=== PATIENT | female | born 1970 | race Caucasian/White ===

== ENCOUNTER 2020-10-07 12:23 | Emergency (ER) | payer MEDICAID, SELFPAY ==
--- NOTE | ~2020-10-07 | CT_ITS ---
EXAMINATION: CT ABDOMEN AND PELVIS WITHOUT CONTRAST CLINICAL INFORMATION: Abdominal pain. COMPARISON: None TECHNIQUE: Multidetector volumetric imaging was performed from the superior aspect of the liver through the pubic symphysis. Sagittal and coronal reformatted images were obtained on the technologist's workstation. This CT examination was performed using dose optimization techniques as appropriate, variously including the following: *Automated exposure control *Adjustment of mA and/or kV according to patient size (this includes techniques or standardized protocols for targeted exams where dose is matched to indication/reason for exam; i.e. extremities or head) *Use of iterative reconstruction technique DLP: 420 mGy-cm FINDINGS: LUNG BASES: The visualized lung bases are unremarkable. LIVER, GALLBLADDER, AND BILIARY TREE: The liver is normal in size, shape, and attenuation. No focal hepatic lesion or biliary ductal dilatation is present. The gallbladder is unremarkable with no evidence of radiopaque gallstones, gallbladder wall thickening, or obvious pericholecystic inflammatory changes. PANCREAS: Unremarkable. SPLEEN: Unremarkable. ADRENAL GLANDS: Unremarkable. KIDNEYS AND URETERS: The kidneys are normal in size, shape, and attenuation. There are bilateral small radiopaque renal calculi. The largest 5 mm radiopaque calculi upper pole right kidney and largest 5 mm radiopaque radiopaque calculi mid pole left kidney. BLADDER: Unremarkable. GASTROINTESTINAL TRACT: There are annular sutures in the sigmoid colon with widely patent lumen. There is scattered stool and gas seen throughout the colon without significant distention. There is few scattered diverticula seen in colon but no diverticulitis. The small bowel loops are normal caliber. There is no free air or inflammatory process. ABDOMINAL WALL: No significant hernia is appreciated. LYMPH NODES: Normal. VASCULAR: Unremarkable. PELVIC VISCERA: The uterus is anteverted with bulky uterus and IUD well located within the fundal endometrial canal. There is no free fluid or free air seen. OSSEOUS STRUCTURES: No lytic or sclerotic process seen. CT/CT abdomen pelvis wo con IMPRESSION: Bilateral nephrolithiasis without any caliectasis or hydronephrosis. Scattered diverticulosis without diverticulitis. Widely patent anastomotic sigmoid colon with postsurgical changes. Mild constipation.
[2020-10-07 12:28] VITALS: BP 134/84; PULSE 106; TEMP 36.5; O2SAT 98; BMI 24.3
[2020-10-07 14:00] VITALS: BP 145/84; PULSE 99; RESP 20; O2SAT 99
--- NOTE | 2020-10-07 14:32 | ED.ABDPAIN ---
HPI - Abdominal Pain General Chief Complaint: Abdominal Pain Stated Complaint: MULTIPLE COMPLAINTS Time Seen by Provider: 10/07/20 14:20 Source: patient Mode of arrival: ambulatory Limitations: no limitations History of Present Illness HPI narrative: 50-year-old female history of sigmoid diverticulitis complicated with perforation and peritonitis, patient status post Hermilo's procedure with end-colostomy then went after that for reverse of the colostomy, presented today with 5 days of abdominal pain, patient used leftover Augmentin and prednisone felt temporary improvement of her symptoms, then symptoms start to worsen 2 days ago, described the pain as diffuse dull aching pain to the abdomen area, feeling bloated, feels nausea but no vomiting, last bowel movement was 3 days ago, declined passing flatus. Otherwise no fever, chills. Related Data Allergies Allergy/AdvReac Type Severity Reaction Status Date / Time apple Allergy Severe ANAPHYLAXIS Unverified 02/22/20 18:21 baker Allergy Severe ANAPHYLAXIS Unverified 02/22/20 18:21 latex [LATEX] Allergy Severe ANAPHYLACTIC Unverified 02/22/20 18:21 SHOCK peach [PEACH] Allergy Severe ANAPHYLAXIS Unverified 02/22/20 18:21 pear [PEAR] Allergy Severe ANAPHYLAXIS Unverified 02/22/20 18:21 latex Allergy Unknown Uncoded 09/06/13 00:00 Latex Gloves Allergy Unknown Uncoded 01/02/20 00:00 Review of Systems Review of Systems All other systems are reviewed and are negative Constitutional: Reports as per HPI and Reports no additional constitutional complaints Eyes: Reports as per HPI and Reports no additional eye complaints Reports system reviewed and no additional complaints, except as documented Cardiovascular: Reports as per HPI and Reports no additional cardiovascular complaints Respiratory: Reports as per HPI and Reports no additional respiratory complaints Gastrointestinal: Reports as per HPI and Reports no additional gastrointestinal complaints Genitourinary: Reports no additional female genitourinary complaints Musculoskeletal: Reports no additional musculoskeletal complaints Skin/Breast: Reports system reviewed and no additional complaints, except as docu Psychiatric: Reports no additional psychiatric complaints Endocrine: Reports no additional endocrine complaints Hematologic/Lymphatic: Reports no additional hematologic/lymphatic complaints Allergic/Immunologic: Reports no additional allergic/immunologic complaints Reports system reviewed and no additional complaints, except as documented and Reports Abnormal speech present Physical Exam Vital Signs: Vital Signs: Last Vital Signs Temp 97.7 F 10/07/20 12:28 Pulse 99 10/07/20 14:00 Resp 20 10/07/20 14:00 BP 145/84 H 10/07/20 14:00 Pulse Ox 99 10/07/20 14:00 Body Mass Index 24.3 Vital signs have been reviewed as appeared to be correct. Blood pressure normal. Heart rate normal. Respiration rate normal. Temperature normal. Oxygen saturation normal. Appearance: Alert. Oriented X3. No acute distress. Head: Normal external exam. Normocephalic. Atraumatic. No Najera signs noted. No raccoon eyes noted Eyes: PERRLA. EOMI. Conjunctiva and sclera normal. Eyelids normal. ENT: TM's Normal. Pharynx normal. Uvula midline. Moist mucous membranes. No trismus noted. No drooling noted. No muffled voice noted. Neck: Normal inspection. Neck supple. FROM. No adenopathy. Thyroid Normal. No meningeal signs. No neck mass noted. CVS: Normal heart rate and rhythm. Heart sound normal. No murmurs noted. Pulses normal throughout. Respiratory: No respiratory distress. Painless inspiration. Breath sounds normal. No wheezes/rales/rhonchi noted. Chest nontender. No accessory muscle usage noted or decreased air movement noted. Abdomen: Soft, LLQ mild abdominal tenderness, no rebound tenderness, no guarding.. Bowel sounds normal in all 4 quadrants. No distention noted. No organomegaly noted. No visible injury noted. Back: No CVA tenderness. Full range of motion noted. Skin: Skin warm and dry. Normal skin color. Normal skin turgor. No rashes/lesions/lacerations noted. Extremities: No lower extremity edema. Extremities exhibit normal range of motion. Extremities nontender. Neuro: Oriented X 3. No motor deficit. No sensory deficit. Reflexes normal. Course Course Course Narrative: Assessment and plan. 50-year-old female status post Hermilo's procedure after episode of diverticulitis with perforation came in with few days of abdominal pain that improved after patient took her on Augmentin and prednisone (that she use for her lupus) worsening of the abdominal pain over the last 2 days, exam showed no acute peritonitis, mild left lower quadrant tenderness, patient had a CT of the abdomen pelvis which is unremarkable for acute pathology except for mild constipation, normal white count unremarkable labs. Will discharge the patient continue with clear diet and drinking plenty of fluids and contact Dr. Gudino, patient was instructed to return if pain is worsening or not resolving in the next 2 days. MDM - Abdominal Pain Lab Data Attestation: I reviewed the patient's lab results. Result diagrams: 10/07/20 15:11 10/07/20 15:11 Labs: Lab Results 10/07/20 10/07/20 10/07/20 Range/Units 15:04 15:04 15:11 WBC 6.7 (4.8-10.8) X10*3/uL RBC 4.37 (4.20-5.50) X10*6/uL Hgb 13.6 (12.0-16.0) g/dl Hct 39.6 (37-47) % MCV 90.6 (80-98) fL MCH 31.1 (27.0-33.0) pg MCHC 34.3 (31.0-35.0) g/dl RDW 11.5 (11.0-16.0) % Plt Count 336 (160-400) X10*3/uL MPV 9.1 L (9.4-12.3) fL Immature Gran % (Auto) 0.3 (0.0-0.4) % Neut % (Auto) 57.8 (45-73) % Lymph % (Auto) 30.7 (20-40) % [place] % (Auto) 6.0 (2-11) % Eos % (Auto) 4.9 H (0-4) % Baso % (Auto) 0.3 (0-2) % Lymph # (Auto) 2.1 (1.2-4.9) X10*3/uL [place] # (Auto) 0.4 (0.1-1.2) X10*3/uL Eos # (Auto) 0.3 (0.0-0.4) X10*3/uL Baso # (Auto) 0.0 (0.0-0.2) X10*3/uL Abs Immat Gran (auto) 0.02 (0.00-0.03) X10*3/uL Absolute Neuts (auto) 3.9 (2.0-8.3) X10*3/uL Absolute Nucleated RBC 0.000 (0.0-0.012) X10*3/uL Nucleated RBC % (auto) 0.0 (0.0-0.2) /100WBC Sodium (135-145) mmol/L Potassium (3.3-5.1) mmol/L Chloride (96-108) mmol/L Carbon Dioxide (22-29) mmol/L Anion Gap (12-20) BUN (9-16) mg/dL Creatinine (0.5-1.4) mg/dL Estim Creat Clear Calc Estimated GFR Random Glucose (60-115) mg/dL Calcium (8.4-10.2) mg/dL Lipase (8-78) U/L Urine Color YELLOW Urine Appearance CLEAR Urine pH 6.5 (5.0-8.0) Ur Specific [place] 1.010 (1.005-1.025) Urine Protein NEG (NEG-TRACE) MG/DL Urine Glucose (UA) NEG (NEG) MG/DL Urine Ketones NEG (NEG) MG/DL Urine Blood NEG (NEG) Urine Nitrite NEG (NEG) Ur Leukocyte Esterase NEG (NEG) Urine Test NEGATIVE (NEGATIVE) 10/07/20 Range/Units 15:11 WBC (4.8-10.8) X10*3/uL RBC (4.20-5.50) X10*6/uL Hgb (12.0-16.0) g/dl Hct (37-47) % MCV (80-98) fL MCH (27.0-33.0) pg MCHC (31.0-35.0) g/dl RDW (11.0-16.0) % Plt Count (160-400) X10*3/uL MPV (9.4-12.3) fL Immature Gran % (Auto) (0.0-0.4) % Neut % (Auto) (45-73) % Lymph % (Auto) (20-40) % [place] % (Auto) (2-11) % Eos % (Auto) (0-4) % Baso % (Auto) (0-2) % Lymph # (Auto) (1.2-4.9) X10*3/uL [place] # (Auto) (0.1-1.2) X10*3/uL Eos # (Auto) (0.0-0.4) X10*3/uL Baso # (Auto) (0.0-0.2) X10*3/uL Abs Immat Gran (auto) (0.00-0.03) X10*3/uL Absolute Neuts (auto) (2.0-8.3) X10*3/uL Absolute Nucleated RBC (0.0-0.012) X10*3/uL Nucleated RBC % (auto) (0.0-0.2) /100WBC Sodium 141 (135-145) mmol/L Potassium 3.7 (3.3-5.1) mmol/L Chloride 103 (96-108) mmol/L Carbon Dioxide 31 H (22-29) mmol/L Anion Gap 11 L (12-20) BUN 14 (9-16) mg/dL Creatinine 0.84 (0.5-1.4) mg/dL Estim Creat Clear Calc 67.7 Estimated GFR > 60 Random Glucose 76 (60-115) mg/dL Calcium 9.5 (8.4-10.2) mg/dL Lipase 33 (8-78) U/L Urine Color Urine Appearance Urine pH (5.0-8.0) Ur Specific [place] (1.005-1.025) Urine Protein (NEG-TRACE) MG/DL Urine Glucose (UA) (NEG) MG/DL Urine Ketones (NEG) MG/DL Urine Blood (NEG) Urine Nitrite (NEG) Ur Leukocyte Esterase (NEG) Urine Test (NEGATIVE) Discharge Plan Discharge Clinical Impression: Abdominal pain, Constipation Patient Disposition: Home, Self-Care Instructions: Constipation (ED) Additional Instructions: Return to the emergency department if pain is worsening or not resolving in the next 2 days. Drink plenty fluids, continue with clear diet then advance as tolerated. Referrals: Mamadou Gudino MD [Physician] - [facility] Past Medical History Medical History ADHD Diverticulitis HTN (hypertension) Lupus Surgical History (Updated 10/07/20 @ 12:33 by Veronique Moise) History of colon resection Social History Social History Advance Directives: No Advance Directives Information Provided: No
[2020-10-07 15:20] LABS: MANUAL DIFF FLAG NO
[2020-10-07 15:24] LABS: Basophils Percent Auto 0.3 % (0-2); Eosinophils Absolute Auto 0.3 X10*3/uL (0.0-0.4); Eosinophils Percent Auto 4.9 % (0-4); Hematocrit 39.6 % (37-47); Hemoglobin 13.6 g/dl (12.0-16.0); Imm Gran Abs Auto 0.02 X10*3/uL (0.00-0.03); Imm Gran Pct Auto 0.3 % (0.0-0.4); Lymphocytes Absolute Auto 2.1 X10*3/uL (1.2-4.9); Lymphocytes Percent Auto 30.7 % (20-40); Mean Corpuscular HGB Conc 34.3 g/dl (31.0-35.0); Mean Corpuscular Hemoglobin 31.1 pg (27.0-33.0); Mean Corpuscular Volume 90.6 fL (80-98); Mean Platelet Volume 9.1 fL (9.4-12.3); Monocytes Absolute Auto 0.4 X10*3/uL (0.1-1.2); Neutrophils Absolute Auto 3.9 X10*3/uL (2.0-8.3); Neutrophils Percent Auto 57.8 % (45-73); Platelet Count 336 X10*3/uL (160-400); Red Blood Count 4.37 X10*6/uL (4.20-5.50); Red Cell Distribution Width 11.5 % (11.0-16.0); White Blood Count 6.7 X10*3/uL (4.8-10.8)
[2020-10-07 15:25] LABS: Glucose Urine UA NEG (NEG); Leukocyte Esterase Urine NEG (NEG); Nitrite Urine NEG (NEG); PH 6.5 (5.0-8.0); Urine Blood NEG (NEG); Urine Ketones NEG (NEG); Urine Protein NEG (NEG-TRACE)
[2020-10-07 15:28] LABS: Appearance Urine CLEAR; Color Urine YELLOW
[2020-10-07 15:29] LABS: UPreg QC Valid YES; Urine Pregnancy NEGATIVE (NEGATIVE)
[2020-10-07] MEDS: ondansetron HCL 4 MG/2 ML VIAL IVPUSH (15:29)
[2020-10-07] MEDS: 0.9 % Sodium Chloride 1,000 ML 999 ML IVCONT (15:30)
[2020-10-07] MEDS: Morphine Sulfate 2 MG/ML CARTRIDGE 1 MG IVPUSH (15:30)
[2020-10-07 15:51] LABS: Anion Gap 11 (12-20); Blood Urea Nitrogen 14 mg/dL (9-16); Calcium 9.5 mg/dL (8.4-10.2); Carbon Dioxide 31 mmol/L (22-29); Chloride 103 mmol/L (96-108); Creatinine Clr Calc Pharmacy 67.7; Estimated Glomerular Filt Rate > 60; Glucose Random 76 mg/dL (60-115); Lipase 33 U/L (8-78); Potassium 3.7 mmol/L (3.3-5.1); Sodium 141 mmol/L (135-145)
[2020-10-07 15:53] LABS: Alanine Aminotransferase 15 U/L (0-31); Albumin Level 4.5 g/dL (3.5-5.0); Alkaline Phosphatase 59 U/L (39-117); Aspartate Amino Transferase 13 U/L (5-31); Bilirubin Direct < 0.2 mg/dL (0.0-0.5); Bilirubin Total 0.4 mg/dL (0.0-1.0); Total Protein 7.3 g/dL (6.5-8.0)
== END 2020-10-07 16:33 | disposition home or self-care (01) ==
PROVIDERS: Emergency Provider Emergency Medicine; PCP Family Medicine
DX: R10.9 Unspecified abdominal pain (principal); K59.00 Constipation, unspecified; I10 Essential (primary) hypertension; Z79.899 Other long term (current) drug therapy
CPT/HCPCS: 36415; 74176; 80048; 80076; 81003; 81025; 83690; 85025; 96374; 96375; 99284; J2270; J2405

== ENCOUNTER → 2020-10-11 09:03 | Outpatient (BNVA) | payer MEDICAID, SELFPAY | PROVIDERS: PCP Family Medicine; Visit Provider Surgery | DX: K57.92 Diverticulitis of intestine, part unspecified, without perforation or abscess without bleeding (principal); M32.9 Systemic lupus erythematosus, unspecified; K59.00 Constipation, unspecified | CPT/HCPCS: 99212 ==

== ENCOUNTER 2020-11-15 08:10 | Day surgery (SDC) | payer MEDICAID, SELFPAY ==
--- NOTE | 2020-11-13 12:36 | HO.ANESPROP2 ---
Documented by User: Toya Houston 11/13/20 12:38 HPI - Anesthesia Eval Consult details Narrative: 50yo F for Colonoscopy h/o ostomy s/p reversal ? chronic prednisone (lupus) PMFSH Active Problems Active Problems: All Active Problems (Updated 10/11/20 @ 09:30 by Mamadou Gduino MD) Lupus (Acute) Diverticulitis (Acute) Past Medical History Medical History ADHD Diverticulitis HTN (hypertension) Lupus Surgical History Surgical History History of colon resection Social History Social History Alcohol intake: never Patient Tobacco Use Status: Never used Tobacco Second Hand Smoke Exposure: No Use of substances other than those prescribed or required for medical reasons: Yes Substance Use Type Other:: medical marijuana Are you DNR?: No Advance Directives: No Advance Directives Information Provided: Yes Advance Directives on File: No Nutrition Risks: No Nutritional Risk Patient : No : No Poor oral hygiene: No Meds Allergies Allergy/AdvReac Type Severity Reaction Status Date / Time apple Allergy Severe ANAPHYLAXIS Verified 11/15/20 08:19 baker Allergy Severe ANAPHYLAXIS Verified 11/15/20 08:19 latex [LATEX] Allergy Severe ANAPHYLACTIC Verified 11/15/20 08:19 SHOCK peach [PEACH] Allergy Severe ANAPHYLAXIS Verified 11/15/20 08:19 pear [PEAR] Allergy Severe ANAPHYLAXIS Verified 11/15/20 08:19 latex Allergy Unknown Rash Uncoded 11/15/20 08:19 Latex Gloves Allergy Unknown Rash Uncoded 11/15/20 08:19 Exam Exam Date and Time: November 13, 2020 1236 Pertinent Lab Results Pertinent Lab Results: Laboratory Tests 10/07/20 10/07/20 15:11 15:11 WBC 6.7 Hgb 13.6 Hct 39.6 Plt Count 336 Sodium 141 Potassium 3.7 Chloride 103 Carbon Dioxide 31 H BUN 14 Creatinine 0.84 Assessment and Plan Assessment Anesthesia Assessment: Chart Reviewed Documented by User: Kristen Estes 11/15/20 09:41 PMFSH Past Medical History Medical History ADHD Diverticulitis HTN (hypertension) Lupus Surgical History Surgical History History of colon resection Social History Social History Alcohol intake: never Patient Tobacco Use Status: Never used Tobacco Second Hand Smoke Exposure: No Use of substances other than those prescribed or required for medical reasons: Yes Substance Use Type Other:: medical marijuana Are you DNR?: No Advance Directives: No Advance Directives Information Provided: Yes Advance Directives on File: No Nutrition Risks: No Nutritional Risk Patient : No : No Poor oral hygiene: No Meds Allergies Allergy/AdvReac Type Severity Reaction Status Date / Time apple Allergy Severe ANAPHYLAXIS Verified 11/15/20 08:19 baker Allergy Severe ANAPHYLAXIS Verified 11/15/20 08:19 latex [LATEX] Allergy Severe ANAPHYLACTIC Verified 11/15/20 08:19 SHOCK peach [PEACH] Allergy Severe ANAPHYLAXIS Verified 11/15/20 08:19 pear [PEAR] Allergy Severe ANAPHYLAXIS Verified 11/15/20 08:19 latex Allergy Unknown Rash Uncoded 11/15/20 08:19 Latex Gloves Allergy Unknown Rash Uncoded 11/15/20 08:19 Exam Airway Mallampati Class: II TM Dist: >3cm Neck ROM: Full Loose/Missing/Broken Teeth: No Heart: RRR Lungs: CTA Assessment and Plan Assessment Anesthesia Assessment: Anesthesia Plan Discussed and Chart Reviewed Final Anesthetic Review NPO: Yes ASA Class: II Final Preanesthetic Review: Meds/Allgs Chart Reviewed, Consent Obtained/Reviewed and Anes Risks/Benef Reviewed Patient Risk: Low Procedure Risk: Low Anesthetic Plan Anesthetic Plan: MAC: Disposition: Standard PACU
[2020-11-15 08:20] VITALS: BMI 23.3
[2020-11-15 08:32] VITALS: BP 106/56; PULSE 99; RESP 18; TEMP 36.1; O2SAT 97
[2020-11-15] MEDS: Lactated Ringers 1,000 ML 100 ML IVCONT (08:38)
[2020-11-15 10:10] VITALS: BP 97/47; PULSE 95; RESP 18; TEMP 36.3; O2SAT 100
--- NOTE | 2020-11-15 10:15 | PM.OP ---
Brief Operative Note Date of Service: 11/15/20 Pre-op diagnosis: Screening Post-op diagnosis: other (Colon polyps) Procedure: Colonoscopy to the cecum and TI with biopsies Surgeon: Ghulam Velazquez Anesthesia: MAC Was an Edge Banding Machine Offbearer used for this Procedure?: No Estimated blood loss (mL): 4.0 Pathology: other (A. Polyp along inferior portion of ICV B. Cecal polyp) Condition: stable Disposition: PACU
[2020-11-15 10:25] VITALS: BP 109/49; PULSE 89; RESP 17; TEMP 36.3; O2SAT 97
--- NOTE | 2020-11-15 13:09 | OP_ITS ---
SURGEON: Ghulam Velazquez MD INDICATIONS: The patient presents for evaluation of colorectal cancer screening. Full consent has been obtained from her for this, including risks of bleeding and perforation. PREOPERATIVE DIAGNOSIS: Colorectal cancer screening. POSTOPERATIVE DIAGNOSIS: PROCEDURE PERFORMED: Colonoscopy to the cecum and terminal ileum with biopsy and removal of polyps. ESTIMATED BLOOD LOSS: COMPLICATIONS: ANESTHESIA: Monitored anesthesia care. ASSISTANTS: SPECIMENS: POSTOPERATIVE DIAGNOSES: Colorectal cancer screening, colon polyps, normal anastomosis, and internal hemorrhoids. DESCRIPTION OF PROCEDURE: The patient was placed in the left lateral decubitus position. The digital rectal exam revealed no abnormalities. The Olympus video pediatric colonoscope was entered into the rectum and advanced easily to the cecum. Once in the cecum, I did identify normal-appearing cecal pouch other than a flat whitish approximately 10 to 12 mm slightly raised polypoid area that was biopsied multiple times. I do not think it represented an adenoma. The terminal ileum was cannulated and appeared normal. Scope was withdrawn back in the colon. The remainder of the cecum appeared normal, including the appendiceal orifice. The scope was then slowly withdrawn assessing all mucosal surfaces carefully. Preparation was excellent, although there was some small areas of liquid and semi-solid stool that had to be irrigated and suctioned away. In the very proximal ascending colon, alongside the inferior portion of the ileocecal valve, was another similar type polyp as to the one of the cecum. Multiple biopsies were obtained from this as well. I did not visualize any other polyps, colitis, nor angiodysplasia. A normal-appearing anastomosis with a retained staple was seen in the mid rectum. I was able to retroflexed visualizing some small internal hemorrhoids, but no other pathology. The scope was straightened. I did not visualize any other polyps throughout the colon, colitis, nor angiodysplasia. The scope was withdrawn from the patient. She tolerated the procedure well and was returned to the recovery area in stable condition. IMPRESSION: 1. Colon polyps, status post biopsies. 2. Normal anastomosis. 3. Small internal hemorrhoids. PLAN: The results of the biopsies will be checked. If this is just hyperplastic and non-adenomatous tissue, then recommend a repeat colonoscopy in 10 years for further screening. She was advised to continue her regimen of MiraLAX and stool softeners on a regular basis to avoid constipation. She was advised not to use any aspirin and NSAIDs for 1 week. If things are stable, she will otherwise see me on a p.r.n. basis. MD OPAL Carbajal/BRIAN / [id number]
== END 2020-11-15 10:49 | disposition home or self-care (01) ==
PROVIDERS: PCP Family Medicine; Visit Provider Internal Medicine
PROC: 0DJD8ZZ Inspection of Lower Intestinal Tract, Via Natural or Artificial Opening Endoscopic (ICD-10-PCS; CPT 45378; principal; 2020-11-15 09:10)
DX: Z12.11 Encounter for screening for malignant neoplasm of colon (principal); Z83.71 Family history of colonic polyps; D12.0 Benign neoplasm of cecum; D12.2 Benign neoplasm of ascending colon; K64.8 Other hemorrhoids; K59.00 Constipation, unspecified; Z90.49 Acquired absence of other specified parts of digestive tract; Z98.0 Intestinal bypass and anastomosis status; I10 Essential (primary) hypertension; M32.9 Systemic lupus erythematosus, unspecified; F12.90 Cannabis use, unspecified, uncomplicated; Z79.899 Other long term (current) drug therapy; Z79.52 Long term (current) use of systemic steroids
CPT/HCPCS: 45380; 88305

== ENCOUNTER 2020-12-21 18:15 | Emergency (ER) | payer MEDICAID, SELFPAY ==
--- NOTE | ~2020-12-21 | CT_ITS ---
EXAMINATION: CT ABDOMEN AND PELVIS WITHOUT CONTRAST CLINICAL INFORMATION: Left lower quadrant pain. Question diverticulitis. COMPARISON: Multiple priors, most recent CT abdomen/pelvis dated 10/07/2020. TECHNIQUE: Multidetector volumetric imaging was performed from the superior aspect of the liver through the pubic symphysis. Sagittal and coronal reformatted images were obtained on the technologist's workstation. This CT examination was performed using dose optimization techniques as appropriate, variously including the following: *Automated exposure control *Adjustment of mA and/or kV according to patient size (this includes techniques or standardized protocols for targeted exams where dose is matched to indication/reason for exam; i.e. extremities or head) *Use of iterative reconstruction technique DLP: 400 mGy-cm FINDINGS: LUNG BASES: The visualized lung bases are unremarkable. LIVER, GALLBLADDER, AND BILIARY TREE: The liver is normal in size, shape, and attenuation. No focal hepatic lesion or biliary ductal dilatation is present. The gallbladder is unremarkable with no evidence of radiopaque gallstones, gallbladder wall thickening, or obvious pericholecystic inflammatory changes. PANCREAS: Unremarkable. SPLEEN: Unremarkable. ADRENAL GLANDS: Unremarkable. KIDNEYS AND URETERS: The kidneys are normal in size, shape, and attenuation. Multiple bilateral renal stones are redemonstrated, increased in size and number when compared to the prior examination. The largest right upper pole renal stone measures 0.4 cm and is located 6.8 cm from the posterior axillary line. The largest left-sided renal stone is within the lateral pole and measures 0.6 cm. This is located 6.2 cm from the posterior axillary line. No ureteral stone. No hydronephrosis or hydroureter. BLADDER: Unremarkable. GASTROINTESTINAL TRACT: Unremarkable rectosigmoid anastomosis. Diverticulosis without evidence of acute diverticulitis. No bowel wall thickening or associated inflammatory change. Mild stool throughout the right colon. No small or large bowel obstruction. Appendix not identified, however, no right lower quadrant inflammatory change. PERITONEAL CAVITY: No intra-abdominal free air or free fluid. No intra-abdominal mass or organized fluid collection/abscess formation. ABDOMINAL WALL: No significant hernia is appreciated. LYMPH NODES: Normal. VASCULAR: Unremarkable. PELVIC VISCERA: IUD within the uterus. OSSEOUS STRUCTURES: Unremarkable. CT/CT abdomen pelvis wo con IMPRESSION: 1. Multiple bilateral renal stones, increased in size and number when compared to the prior CT. The largest stone on the right measures 0.4 cm and the largest on the left measures 0.6 cm. No hydronephrosis or hydroureter. 2. Diverticulosis without evidence of acute diverticulitis. Unremarkable rectosigmoid anastomosis. No small or large bowel obstruction. 3. No intra-abdominal mass, lymphadenopathy, or ascites.
[2020-12-21 18:19] VITALS: BP 123/90; PULSE 136; RESP 15; TEMP 36.6; O2SAT 99; BMI 23.3
--- NOTE | 2020-12-21 18:52 | ED.ABDPAIN ---
HPI - Abdominal Pain General Chief Complaint: Abdominal Pain Stated Complaint: general medical Time Seen by Provider: 12/21/20 18:52 Source: patient Mode of arrival: ambulatory Limitations: no limitations History of Present Illness HPI narrative: Patient with history of perforated diverticulitis status post colectomy, lupus on Plaquenil stops here for 3- 4 days of left lower abdominal pain with nausea and chills no fever no diarrhea no bloody stool pain got worse for last few hours patient feels foggy in her mind will confuse feels same when she had perforated diverticulitis in 2019. Related Data Previous Rx's Medication Instructions Recorded amoxicillin-pot clavulanate 1 tab PO BID #20 tab 12/21/20 [Augmentin] dicyclomine 20 mg PO QID PRN #20 tab 12/21/20 Allergies Allergy/AdvReac Type Severity Reaction Status Date / Time apple Allergy Severe ANAPHYLAXIS Verified 12/21/20 18:18 baker Allergy Severe ANAPHYLAXIS Verified 12/21/20 18:18 latex [LATEX] Allergy Severe ANAPHYLACTIC Verified 12/21/20 18:18 SHOCK peach [PEACH] Allergy Severe ANAPHYLAXIS Verified 12/21/20 18:18 pear [PEAR] Allergy Severe ANAPHYLAXIS Verified 12/21/20 18:18 latex Allergy Unknown Rash Uncoded 11/15/20 08:19 Latex Gloves Allergy Unknown Rash Uncoded 11/15/20 08:19 Review of Systems Review of Systems Yes all other systems are reviewed and are negative Physical Exam Vital Signs: Vital Signs: Last Vital Signs Temp 98.0 F 12/21/20 22:00 Pulse 90 12/21/20 22:00 Resp 20 12/21/20 22:00 BP 130/70 12/21/20 22:00 Pulse Ox 97 12/21/20 22:00 Body Mass Index 23.3 Appearance: Alert. Oriented X3. In moderate distress. Eyes: PERRLA, No Nystagmus ENT: Pharynx normal. Oral Mucosa moist Neck: Normal inspection. Neck supple. CVS: Tachycardic no murmur or gallop. Pulses normal. Respiratory: No respiratory distress. Equal air entry bilateral, no wheezing/rales/rhonchi Abdomen: Soft and tender left lower quadrant with guarding no rebound tenderness Bowel sounds are present, no mass palpable, no CVA tenderness Skin: Skin warm and dry. Normal skin color. Normal skin turgor. Extremities: No lower extremity edema. No calf tenderness Neuro: Oriented X 3. No motor deficit. MDM - Abdominal Pain MDM Narrative Medical decision making narrative: Patient with left lower quadrant pain CT scan negative for any diverticulitis workup was also negative patient received a dose of Zosyn patient still feels uncomfortable with discharge patient home on Augmentin for possible early diverticulitis Lab Data Attestation: I reviewed the patient's lab results. Result diagrams: 12/21/20 19:13 12/21/20 19:13 Labs: Lab Results 12/21/20 12/21/20 12/21/20 Range/Units 19:13 19:13 19:13 WBC 9.7 (4.8-10.8) X10*3/uL RBC 4.42 (4.20-5.50) X10*6/uL Hgb 13.4 (12.0-16.0) g/dl Hct 39.4 (37-47) % MCV 89.1 (80-98) fL MCH 30.3 (27.0-33.0) pg MCHC 34.0 (31.0-35.0) g/dl RDW 11.8 (11.0-16.0) % Plt Count 319 (160-400) X10*3/uL MPV 9.4 (9.4-12.3) fL Immature Gran % (Auto) 0.2 (0.0-0.4) % Neut % (Auto) 86.5 H (45-73) % Lymph % (Auto) 9.3 L (20-40) % [place] % (Auto) 3.9 (2-11) % Eos % (Auto) 0.0 (0-4) % Baso % (Auto) 0.1 (0-2) % Lymph # (Auto) 0.9 L (1.2-4.9) X10*3/uL [place] # (Auto) 0.4 (0.1-1.2) X10*3/uL Eos # (Auto) 0.0 (0.0-0.4) X10*3/uL Baso # (Auto) 0.0 (0.0-0.2) X10*3/uL Abs Immat Gran (auto) 0.02 (0.00-0.03) X10*3/uL Absolute Neuts (auto) 8.4 H (2.0-8.3) X10*3/uL Absolute Nucleated RBC 0.000 (0.0-0.012) X10*3/uL Nucleated RBC % (auto) 0.0 (0.0-0.2) /100WBC Sodium 139 (135-145) mmol/L Potassium 3.5 (3.3-5.1) mmol/L Chloride 103 (96-108) mmol/L Carbon Dioxide 26 (22-29) mmol/L Anion Gap 14 (12-20) BUN 15 (9-16) mg/dL Creatinine 0.94 (0.5-1.4) mg/dL Estim Creat Clear Calc 55.9 Estimated GFR > 60 Random Glucose 91 (60-115) mg/dL Lactic Acid 1.4 (0.5-2.0) mmol/L Calcium 9.5 (8.4-10.2) mg/dL Total Bilirubin 0.8 (0.0-1.0) mg/dL Direct Bilirubin 0.3 (0.0-0.5) mg/dL AST 14 (5-31) U/L ALT 15 (0-31) U/L Alkaline Phosphatase 58 (39-117) U/L Total Protein 7.3 (6.5-8.0) g/dL Albumin 4.4 (3.5-5.0) g/dL Lipase 14 (8-78) U/L Urine Color Urine Appearance Urine pH (5.0-8.0) Ur Specific [place] (1.005-1.025) Urine Protein (NEG-TRACE) MG/DL Urine Glucose (UA) (NEG) MG/DL Urine Ketones (NEG) MG/DL Urine Blood (NEG) Urine Nitrite (NEG) Ur Leukocyte Esterase (NEG) 12/21/20 Range/Units 22:01 WBC (4.8-10.8) X10*3/uL RBC (4.20-5.50) X10*6/uL Hgb (12.0-16.0) g/dl Hct (37-47) % MCV (80-98) fL MCH (27.0-33.0) pg MCHC (31.0-35.0) g/dl RDW (11.0-16.0) % Plt Count (160-400) X10*3/uL MPV (9.4-12.3) fL Immature Gran % (Auto) (0.0-0.4) % Neut % (Auto) (45-73) % Lymph % (Auto) (20-40) % [place] % (Auto) (2-11) % Eos % (Auto) (0-4) % Baso % (Auto) (0-2) % Lymph # (Auto) (1.2-4.9) X10*3/uL [place] # (Auto) (0.1-1.2) X10*3/uL Eos # (Auto) (0.0-0.4) X10*3/uL Baso # (Auto) (0.0-0.2) X10*3/uL Abs Immat Gran (auto) (0.00-0.03) X10*3/uL Absolute Neuts (auto) (2.0-8.3) X10*3/uL Absolute Nucleated RBC (0.0-0.012) X10*3/uL Nucleated RBC % (auto) (0.0-0.2) /100WBC Sodium (135-145) mmol/L Potassium (3.3-5.1) mmol/L Chloride (96-108) mmol/L Carbon Dioxide (22-29) mmol/L Anion Gap (12-20) BUN (9-16) mg/dL Creatinine (0.5-1.4) mg/dL Estim Creat Clear Calc Estimated GFR Random Glucose (60-115) mg/dL Lactic Acid (0.5-2.0) mmol/L Calcium (8.4-10.2) mg/dL Total Bilirubin (0.0-1.0) mg/dL Direct Bilirubin (0.0-0.5) mg/dL AST (5-31) U/L ALT (0-31) U/L Alkaline Phosphatase (39-117) U/L Total Protein (6.5-8.0) g/dL Albumin (3.5-5.0) g/dL Lipase (8-78) U/L Urine Color YELLOW Urine Appearance CLEAR Urine pH 6.0 (5.0-8.0) Ur Specific [place] 1.020 (1.005-1.025) Urine Protein NEG (NEG-TRACE) MG/DL Urine Glucose (UA) NEG (NEG) MG/DL Urine Ketones NEG (NEG) MG/DL Urine Blood NEG (NEG) Urine Nitrite NEG (NEG) Ur Leukocyte Esterase NEG (NEG) Discharge Plan Discharge Clinical Impression: Abdominal pain, Diverticulosis Patient Disposition: Home, Self-Care Instructions: Diverticulosis (ED) Additional Instructions: Drink Plenty of fluids at this time there is no sign of infection Take antibiotic prophylactically Report to the ER if increased pain or fever Prescriptions: New dicyclomine 20 mg tablet 20 mg PO QID PRN (Reason: abdominal pain) Qty: 20 RF: 0 amoxicillin-pot clavulanate [Augmentin] 875-125 mg tablet 1 tab PO BID Qty: 20 RF: 0 Discharge Date/Time: 12/21/20 23:26 COUNT INCLUDES THE [facility] Past Medical History Medical History ADHD Diverticulitis HTN (hypertension) Lupus Surgical History History of colon resection Social History Social History Alcohol intake: never Patient Tobacco Use Status: Never used Tobacco Second Hand Smoke Exposure: No Advance Directives: No Advance Directives Information Provided: Yes Patient : No
[2020-12-21] MEDS: ondansetron HCL 4 MG/2 ML VIAL IVPUSH (19:21)
[2020-12-21] MEDS: Morphine Sulfate 4 MG/ML CARTRIDGE IVPUSH (19:21)
[2020-12-21] MEDS: 0.9 % Sodium Chloride 1,000 ML 999 ML IVCONT (19:21)
[2020-12-21 19:22] LABS: Basophils Percent Auto 0.1 % (0-2); Hematocrit 39.4 % (37-47); Hemoglobin 13.4 g/dl (12.0-16.0); Imm Gran Abs Auto 0.02 X10*3/uL (0.00-0.03); Imm Gran Pct Auto 0.2 % (0.0-0.4); Lymphocytes Absolute Auto 0.9 X10*3/uL (1.2-4.9); Lymphocytes Percent Auto 9.3 % (20-40); MANUAL DIFF FLAG NO; Mean Corpuscular Hemoglobin 30.3 pg (27.0-33.0); Mean Corpuscular Volume 89.1 fL (80-98); Mean Platelet Volume 9.4 fL (9.4-12.3); Monocytes Absolute Auto 0.4 X10*3/uL (0.1-1.2); Monocytes Percent Auto 3.9 % (2-11); Neutrophils Absolute Auto 8.4 X10*3/uL (2.0-8.3); Neutrophils Percent Auto 86.5 % (45-73); Platelet Count 319 X10*3/uL (160-400); Red Blood Count 4.42 X10*6/uL (4.20-5.50); Red Cell Distribution Width 11.8 % (11.0-16.0); White Blood Count 9.7 X10*3/uL (4.8-10.8)
[2020-12-21] MEDS: Piperacillin Sodium/Tazobactam 3.375 GM in 0.9 % Sodium Chloride 50 ML IV (19:39)
[2020-12-21 19:41] LABS: Lactic Acid 1.4 mmol/L (0.5-2.0)
[2020-12-21 19:45] LABS: Alanine Aminotransferase 15 U/L (0-31); Albumin Level 4.4 g/dL (3.5-5.0); Alkaline Phosphatase 58 U/L (39-117); Anion Gap 14 (12-20); Aspartate Amino Transferase 14 U/L (5-31); Bilirubin Direct 0.3 mg/dL (0.0-0.5); Bilirubin Total 0.8 mg/dL (0.0-1.0); Blood Urea Nitrogen 15 mg/dL (9-16); Calcium 9.5 mg/dL (8.4-10.2); Carbon Dioxide 26 mmol/L (22-29); Chloride 103 mmol/L (96-108); Creatinine Clr Calc Pharmacy 55.9; Estimated Glomerular Filt Rate > 60; Glucose Random 91 mg/dL (60-115); Lipase 14 U/L (8-78); Potassium 3.5 mmol/L (3.3-5.1); Sodium 139 mmol/L (135-145); Total Protein 7.3 g/dL (6.5-8.0)
[2020-12-21 22:00] VITALS: BP 130/70; PULSE 90; RESP 20; TEMP 36.7; O2SAT 97
[2020-12-21 22:16] LABS: Glucose Urine UA NEG (NEG); Leukocyte Esterase Urine NEG (NEG); Nitrite Urine NEG (NEG); Urine Blood NEG (NEG); Urine Ketones NEG (NEG); Urine Protein NEG (NEG-TRACE)
[2020-12-21 22:25] LABS: Appearance Urine CLEAR; Color Urine YELLOW
== END 2020-12-21 23:26 | disposition home or self-care (01) ==
PROVIDERS: Emergency Provider Internal Medicine; PCP Family Medicine
DX: K57.90 Diverticulosis of intestine, part unspecified, without perforation or abscess without bleeding (principal); I10 Essential (primary) hypertension; M32.9 Systemic lupus erythematosus, unspecified; Z79.899 Other long term (current) drug therapy
CPT/HCPCS: 36415; 74176; 80048; 80076; 81003; 83605; 83690; 85025; 87040; 96361; 96365; 96375; 99284; J2270; J2405; J2543

== ENCOUNTER 2021-11-13 13:56 | Emergency (ER) | payer MEDICAID, SELFPAY ==
--- NOTE | ~2021-11-13 | CT_ITS ---
EXAMINATION: CT ABDOMEN AND PELVIS WITHOUT CONTRAST CLINICAL INFORMATION: Left lower quadrant pain COMPARISON: None TECHNIQUE: Multidetector volumetric imaging was performed from the superior aspect of the liver through the pubic symphysis. Sagittal and coronal reformatted images were obtained on the technologist's workstation. This CT examination was performed using dose optimization techniques as appropriate, variously including the following: *Automated exposure control *Adjustment of mA and/or kV according to patient size (this includes techniques or standardized protocols for targeted exams where dose is matched to indication/reason for exam; i.e. extremities or head) *Use of iterative reconstruction technique DLP: 449 mGy-cm FINDINGS: LUNG BASES: The visualized lung bases are unremarkable. LIVER, GALLBLADDER, AND BILIARY TREE: The liver is normal in size, shape, and attenuation. No focal hepatic lesion or biliary ductal dilatation is present. The gallbladder is unremarkable with no evidence of radiopaque gallstones, gallbladder wall thickening, or obvious pericholecystic inflammatory changes. PANCREAS: Unremarkable. SPLEEN: Unremarkable. ADRENAL GLANDS: Unremarkable. KIDNEYS AND URETERS: The kidneys are normal in size, shape, and attenuation. There are bilateral small radiopaque renal calculi. The largest radiopaque calculi upper pole left kidney measures 3 mm and upper/ midpole measures 8 mm kidney. No caliectasis or hydronephrosis seen. There is no ureteral dilatation either. BLADDER: The bladder is nondilated and appears unremarkable. GASTROINTESTINAL TRACT: There is scattered stool, diverticuli and gas seen throughout the colon most prominent in the ascending and transverse colon. There are postsurgical annular sutures seen in the sigmoid colon with patent lumen. There is no mural thickening or fat stranding to suspect diverticulitis. ABDOMINAL WALL: No significant hernia is appreciated. LYMPH NODES: Normal. VASCULAR: Unremarkable. PELVIC VISCERA: The uterus is anteverted with an IUD well located within the endometrial canal. There is no free fluid. There is no adnexal mass seen. OSSEOUS STRUCTURES: No lytic or sclerotic process seen. CT/CT abdomen pelvis wo con IMPRESSION: Bilateral nephrolithiasis without caliectasis or hydronephrosis. Scattered colonic diverticulosis without diverticulitis. Fleischner guidelines were followed.
[2021-11-13 14:11] VITALS: BP 132/78; PULSE 95; RESP 18; TEMP 36.8; O2SAT 98; BMI 22.8
[2021-11-13 14:26] LABS: MANUAL DIFF FLAG NO
[2021-11-13 14:29] LABS: Basophils Percent Auto 0.3 % (0-2); Eosinophils Absolute Auto 0.1 X10*3/uL (0.0-0.4); Eosinophils Percent Auto 2.2 % (0-4); Hematocrit 42.3 % (37.0-47.0); Hemoglobin 14.6 g/dl (12.0-16.0); Imm Gran Abs Auto 0.01 X10*3/uL (0.00-0.03); Imm Gran Pct Auto 0.2 % (0.0-0.4); Lymphocytes Absolute Auto 2.3 X10*3/uL (1.2-4.9); Lymphocytes Percent Auto 34.8 % (20-40); Mean Corpuscular HGB Conc 34.5 g/dl (31.0-35.0); Mean Corpuscular Hemoglobin 30.9 pg (27.0-33.0); Mean Corpuscular Volume 89.4 fL (80.0-98.0); Monocytes Absolute Auto 0.4 X10*3/uL (0.1-1.2); Monocytes Percent Auto 6.7 % (2-11); Neutrophils Absolute Auto 3.6 x10*3/uL (2.0-8.3); Neutrophils Percent Auto 55.8 % (45-73); Platelet Count 296 X10*3/uL (160-400); Red Blood Count 4.73 X10*6/uL (4.20-5.50); Red Cell Distribution Width 11.8 % (11.0-16.0); White Blood Count 6.5 X10*3/uL (4.8-10.8)
[2021-11-13 14:32] LABS: Appearance Urine CLEAR; Color Urine YELLOW; Glucose Urine UA NEG (NEG); Leukocyte Esterase Urine NEG (NEG); Nitrite Urine NEG (NEG); Specific Gravity - Urine >= 1.030 (1.005-1.025); UACC Culture Trigger NO; Urine Blood TRACE (NEG); Urine Ketones NEG (NEG); Urine Protein TRACE MG/DL (NEG-TRACE)
[2021-11-13 14:33] LABS: UPreg QC Valid YES; Urine Pregnancy NEGATIVE (NEGATIVE)
[2021-11-13 14:43] LABS: Mucus Urine 2+ /LPF; Squamous Epithelial Cell Urine 4+ /LPF
[2021-11-13 14:44] LABS: Alanine Aminotransferase 14 U/L (0-31); Albumin Level 4.3 g/dL (3.5-5.0); Alkaline Phosphatase 47 U/L (39-117); Anion Gap 12 (12-20); Aspartate Amino Transferase 15 U/L (5-31); Bacteria Urine TRACE /LPF; Bilirubin Direct 0.2 mg/dL (0.0-0.5); Bilirubin Total 0.6 mg/dL (0.0-1.0); Blood Urea Nitrogen 12 mg/dL (9-16); COVID-19 Test Negative (Negative); Calcium 9.2 mg/dL (8.4-10.2); Carbon Dioxide 27 mmol/L (22-29); Chloride 104 mmol/L (96-108); Creatinine Clr Calc Pharmacy 55.9; Estimated Glomerular Filt Rate > 60; Glucose Random 86 mg/dL (60-115); Lipase 25 U/L (8-78); Potassium 3.8 mmol/L (3.3-5.1); Sodium 139 mmol/L (135-145); Total Protein 7.2 g/dL (6.5-8.0); UACC CULT YES
--- NOTE | 2021-11-13 19:49 | ED.ABDPAIN ---
HPI - Abdominal Pain General Chief Complaint: Abdominal Pain Stated Complaint: kidney issue, body swelling Time Seen by Provider: 11/13/21 19:45 Source: patient Mode of arrival: ambulatory Limitations: no limitations History of Present Illness HPI narrative: 51 yo female with hx of lupus on plaquenil/prednisone, kidney stones, diverticulitis s/p perforation with surgery, here with c/o LLQ pain and lower abdominal pain x 3 days with n/v. MD elicited complaint: abdominal pain Pertinent past history: diverticulitis and kidney stones Onset (ago): day(s) (3) Pain Consistency: intermittent Location: LLQ and suprapubic Severity: moderate Quality: stabbing Radiation: suprapubic Migration to: no migration Exacerbating factors: nothing Relieving factors: nothing Context: history of similar episodes Associated symptoms: nausea and vomiting Related Data Home Medications Medication Instructions Recorded Confirmed bupropion HCl 300 mg 24 hr tablet, 1 tab PO DAILY 03/31/21 03/31/21 extended release buspirone 10 mg tablet 3 tab PO BEDTIME 03/31/21 03/31/21 cholecalciferol (vitamin D3) 25 25 mcg PO DAILY 03/31/21 03/31/21 mcg (1,000 unit) capsule (Vitamin D3) dextroamphetamine-amphetamine ER 1 cap PO QAM 03/31/21 03/31/21 30 mg 24hr capsule,extend release (Adderall XR) folic acid 1 mg tablet 1 mg PO DAILY 03/31/21 03/31/21 hydroxychloroquine 200 mg tablet 1 tab PO BID 03/31/21 03/31/21 losartan 50 mg-hydrochlorothiazide 1 tab PO DAILY 03/31/21 03/31/21 12.5 mg tablet meloxicam 15 mg tablet 1 tab PO DAILY PRN Pain 03/31/21 03/31/21 sumatriptan succinate 100 mg tablet 1 tab PO DAILY PRN Headache 03/31/21 03/31/21 vitamin B complex 1 tab PO DAILY 03/31/21 03/31/21 Previous Rx's Medication Instructions Recorded amoxicillin 875 mg-potassium 1 tab PO BID #14 tabs 11/13/21 clavulanate 125 mg tablet morphine 15 mg immediate release 15 mg PO TID PRN pain #10 tabs 11/13/21 tablet ondansetron 4 mg disintegrating 4 mg PO Q8H PRN nausea and 11/13/21 tablet vomiting #20 tabs Allergies Allergy/AdvReac Type Severity Reaction Status Date / Time apple Allergy Severe ANAPHYLAXIS Verified 03/31/21 12:13 baker Allergy Severe ANAPHYLAXIS Verified 03/31/21 12:13 latex [LATEX] Allergy Severe ANAPHYLACTIC Verified 03/31/21 12:13 SHOCK peach [PEACH] Allergy Severe ANAPHYLAXIS Verified 03/31/21 12:13 pear [PEAR] Allergy Severe ANAPHYLAXIS Verified 03/31/21 12:13 Review of Systems Review of Systems Constitutional : No Weight loss, No Fever, No Chills ENT/Mouth : No sore throat, No Rhinorrhea Eyes: No Swelling, No Redness Cardiovascular : No Chest Pain, No SOB, NoEdema Respiratory : No Cough, No Sputum, No Wheezing Gastrointestinal : Positive Nausea, Positive Vomiting, no Diarrhea, positive abdominal Pain, No Hematochezia, No Melena Genitourinary : No Dysuria, No Urinary Frequency, No Hematuria, No Urgency Musculoskeletal : No joint pain, No Myalgias, No Joint Swelling Skin : No Skin Lesions, No rash Neuro : No Weakness, No Numbness, No Dizziness, No Headache Psych : No Anxiety/Panic, No Depression Heme/Lymph: No Bruising, No Lymphadenopathy Endocrine : No Polyuria, No Polydipsia All other systems reviewed and are negative. FORMERLY [facility] Past Medical History Attestation statement: The following information was validated with the patient. Medical History ADD (attention deficit disorder) ADHD Depression Diverticulitis History of ischemic colitis HTN (hypertension) Hx of migraines Hx of pneumothorax Hx of renal calculi Lupus PONV (postoperative nausea and vomiting) Surgical History History of colon resection History of cystoscopy History of esophagogastroduodenoscopy (EGD) History of lithotripsy Hx of colonoscopy Social History Social History Alcohol intake: never Patient Tobacco Use Status: Never used Tobacco Second Hand Smoke Exposure: No Advance Directives: No Advance Directives Information Provided: No Physical Exam ED Vital Signs: Vital Signs - 24 hr 11/13/21 14:11 Temperature 98.3 F Pulse Rate 95 Respiratory Rate 18 Blood Pressure 132/78 Pulse Oximetry 98 Oxygen Delivery Method Room Air BMI result Body Mass Index 22.8 Appearance: Alert. Oriented X3. No acute distress. Eyes: Pupils equal, round and reactive to light. ENT: Pharynx normal. Neck: Normal inspection. Neck supple. CVS: Normal heart rate and rhythm. Pulses normal. Respiratory: No respiratory distress. Breath sounds normal. Abdomen: Soft and mild suprapubic lower abdominal ttp Skin: Skin warm and dry. Normal skin color. Normal skin turgor. Extremities: No lower extremity edema. No calf ttp Neuro: Oriented X 3. No motor deficit. No sensory deficit. Course Course Course Narrative: based off symptoms and history will start on augmentin will follow up as outpatient MDM - Abdominal Pain MDM Narrative Medical decision making narrative: 51 yo female with hx of lupus on plaquenil/prednisone, kidney stones, diverticulitis s/p perforation with surgery presents with abdominal pain n/v for 3 days at this time will obtain labs, UA, CT Scan for diverticulitis/renal colic, IV morphine for pain, IVF. Dispo per results and findings. Lab Data Result diagrams: 11/13/21 14:19 11/13/21 14:19 Labs: Lab Results 11/13/21 11/13/21 11/13/21 Range/Units 14:19 14:19 14:19 WBC 6.5 (4.8-10.8) X10*3/uL RBC 4.73 (4.20-5.50) X10*6/uL Hgb 14.6 (12.0-16.0) g/dl Hct 42.3 (37.0-47.0) % MCV 89.4 (80.0-98.0) fL MCH 30.9 (27.0-33.0) pg MCHC 34.5 (31.0-35.0) g/dl RDW 11.8 (11.0-16.0) % Plt Count 296 (160-400) X10*3/uL MPV 9.0 L (9.4-12.3) fL Immature Gran % (Auto) 0.2 (0.0-0.4) % Neut % (Auto) 55.8 (45-73) % Lymph % (Auto) 34.8 (20-40) % [place] % (Auto) 6.7 (2-11) % Eos % (Auto) 2.2 (0-4) % Baso % (Auto) 0.3 (0-2) % Lymph # (Auto) 2.3 (1.2-4.9) X10*3/uL [place] # (Auto) 0.4 (0.1-1.2) X10*3/uL Eos # (Auto) 0.1 (0.0-0.4) X10*3/uL Baso # (Auto) 0.0 (0.0-0.2) X10*3/uL Abs Immat Gran (auto) 0.01 (0.00-0.03) X10*3/uL Absolute Neuts (auto) 3.6 (2.0-8.3) x10*3/uL Absolute Nucleated RBC 0.000 (0.0-0.012) X10*3/uL Nucleated RBC % (auto) 0.0 (0.0-0.2) /100WBC Sodium 139 (135-145) mmol/L Potassium 3.8 (3.3-5.1) mmol/L Chloride 104 (96-108) mmol/L Carbon Dioxide 27 (22-29) mmol/L Anion Gap 12 (12-20) BUN 12 (9-16) mg/dL Creatinine 0.93 (0.5-1.4) mg/dL Estim Creat Clear Calc 55.9 Estimated GFR > 60 Random Glucose 86 (60-115) mg/dL Calcium 9.2 (8.4-10.2) mg/dL Total Bilirubin 0.6 (0.0-1.0) mg/dL Direct Bilirubin 0.2 (0.0-0.5) mg/dL AST 15 (5-31) U/L ALT 14 (0-31) U/L Alkaline Phosphatase 47 (39-117) U/L Total Protein 7.2 (6.5-8.0) g/dL Albumin 4.3 (3.5-5.0) g/dL Lipase 25 (8-78) U/L Urine Color Urine Appearance Urine pH (5.0-8.0) Ur Specific [place] (1.005-1.025) Urine Protein (NEG-TRACE) MG/DL Urine Glucose (UA) (NEG) MG/DL Urine Ketones (NEG) MG/DL Urine Blood (NEG) Urine Nitrite (NEG) Ur Leukocyte Esterase (NEG) Urine RBC (0) /HPF Urine WBC (0-4) /HPF Ur Squamous Epith Cells /LPF Urine Bacteria /LPF Urine Mucus /LPF Urine Test (NEGATIVE) COVID-19 (ERIN) Negative (Negative) COVID-19 Clin Com See Note 11/13/21 11/13/21 Range/Units 14:19 14:19 WBC (4.8-10.8) X10*3/uL RBC (4.20-5.50) X10*6/uL Hgb (12.0-16.0) g/dl Hct (37.0-47.0) % MCV (80.0-98.0) fL MCH (27.0-33.0) pg MCHC (31.0-35.0) g/dl RDW (11.0-16.0) % Plt Count (160-400) X10*3/uL MPV (9.4-12.3) fL Immature Gran % (Auto) (0.0-0.4) % Neut % (Auto) (45-73) % Lymph % (Auto) (20-40) % [place] % (Auto) (2-11) % Eos % (Auto) (0-4) % Baso % (Auto) (0-2) % Lymph # (Auto) (1.2-4.9) X10*3/uL [place] # (Auto) (0.1-1.2) X10*3/uL Eos # (Auto) (0.0-0.4) X10*3/uL Baso # (Auto) (0.0-0.2) X10*3/uL Abs Immat Gran (auto) (0.00-0.03) X10*3/uL Absolute Neuts (auto) (2.0-8.3) x10*3/uL Absolute Nucleated RBC (0.0-0.012) X10*3/uL Nucleated RBC % (auto) (0.0-0.2) /100WBC Sodium (135-145) mmol/L Potassium (3.3-5.1) mmol/L Chloride (96-108) mmol/L Carbon Dioxide (22-29) mmol/L Anion Gap (12-20) BUN (9-16) mg/dL Creatinine (0.5-1.4) mg/dL Estim Creat Clear Calc Estimated GFR Random Glucose (60-115) mg/dL Calcium (8.4-10.2) mg/dL Total Bilirubin (0.0-1.0) mg/dL Direct Bilirubin (0.0-0.5) mg/dL AST (5-31) U/L ALT (0-31) U/L Alkaline Phosphatase (39-117) U/L Total Protein (6.5-8.0) g/dL Albumin (3.5-5.0) g/dL Lipase (8-78) U/L Urine Color YELLOW Urine Appearance CLEAR Urine pH 6.0 (5.0-8.0) Ur Specific [place] >= 1.030 H (1.005-1.025) Urine Protein TRACE (NEG-TRACE) MG/DL Urine Glucose (UA) NEG (NEG) MG/DL Urine Ketones NEG (NEG) MG/DL Urine Blood TRACE (NEG) Urine Nitrite NEG (NEG) Ur Leukocyte Esterase NEG (NEG) Urine RBC 1-4 (0) /HPF Urine WBC 5-9 H (0-4) /HPF Ur Squamous Epith Cells 4+ /LPF Urine Bacteria TRACE /LPF Urine Mucus 2+ /LPF Urine Test NEGATIVE (NEGATIVE) COVID-19 (ERIN) (Negative) COVID-19 Clin Com Discharge Plan Discharge Clinical Impression: Diverticulosis, Bilateral kidney stones Abdominal pain Qualifiers: Abdominal location: lower abdomen, unspecified Qualified Code(s): R10.30 - Lower abdominal pain, unspecified Patient Disposition: Home, Self-Care Instructions: Diverticulosis (ED), Kidney Stones (ED), Abdominal Pain (ED) Additional Instructions: return to ED for any worsening symptoms or concerns please follow up with both your primary care doctor and your urologist. return if you have worsening symptoms, pain, fevers, vomiting or any other concerns. while on antibiotics take an over the counter probiotic CT SCAN: LUNG BASES: The visualized lung bases are unremarkable.? LIVER, GALLBLADDER, AND BILIARY TREE: The liver is normal in size, shape, and attenuation. No focal hepatic lesion or biliary ductal dilatation is present. The gallbladder is unremarkable with no evidence of radiopaque gallstones, gallbladder wall thickening, or obvious pericholecystic inflammatory changes.? PANCREAS: Unremarkable.? SPLEEN: Unremarkable.? ADRENAL GLANDS: Unremarkable.? KIDNEYS AND URETERS: The kidneys are normal in size, shape, and attenuation. There are bilateral? small radiopaque renal calculi. The largest radiopaque calculi upper pole left kidney measures 3 mm and upper/ midpole measures 8 mm kidney. No caliectasis or hydronephrosis seen. There is no ureteral dilatation either. BLADDER: The bladder is nondilated and appears unremarkable.? GASTROINTESTINAL TRACT: There is scattered stool, diverticuli and gas seen throughout the colon most prominent in the ascending and transverse colon. There are postsurgical annular sutures seen in the sigmoid colon with patent lumen. There is no mural thickening or fat stranding to suspect diverticulitis.? ABDOMINAL WALL: No significant hernia is appreciated.? LYMPH NODES: Normal. VASCULAR: Unremarkable. PELVIC VISCERA: The uterus is anteverted with an IUD well located within the endometrial canal. There is no free fluid. There is no adnexal mass seen.? OSSEOUS STRUCTURES: No lytic or sclerotic process seen.? CT/CT abdomen pelvis wo con IMPRESSION: Bilateral nephrolithiasis without caliectasis or hydronephrosis. ? Scattered colonic diverticulosis without diverticulitis.? ? Prescriptions: New morphine 15 mg tablet 15 mg PO TID PRN (Reason: pain) Qty: 10 0RF Rx Instructions: partial fill okay; Partial Fill upon patient request. ondansetron 4 mg tablet,disintegrating 4 mg PO Q8H PRN (Reason: nausea and vomiting) Qty: 20 0RF amoxicillin-pot clavulanate 875-125 mg tablet 1 tab PO BID Qty: 14 0RF No Action meloxicam 15 mg tablet 1 tab PO DAILY PRN (Reason: Pain) buspirone 10 mg tablet 3 tab PO BEDTIME vitamin B complex Tablet 1 tab PO DAILY folic acid 1 mg Tablet 1 mg PO DAILY losartan-hydrochlorothiazide 50-12.5 mg tablet 1 tab PO DAILY dextroamphetamine-amphetamine [Adderall XR] 30 mg capsule,extended release 24hr 1 cap PO QAM cholecalciferol (vitamin D3) [Vitamin D3] 25 mcg (1,000 unit) Capsule 25 mcg PO DAILY bupropion HCl 300 mg tablet extended release 24 hr 1 tab PO DAILY sumatriptan succinate 100 mg tablet 1 tab PO DAILY PRN (Reason: Headache) hydroxychloroquine 200 mg tablet 1 tab PO BID Stand Alone Forms: Work/School Release
[2021-11-13] MEDS: Morphine Sulfate 4 MG/ML CARTRIDGE IVPUSH (20:16)
[2021-11-13] MEDS: ondansetron HCL 4 MG/2 ML VIAL IVPUSH (20:16)
[2021-11-13] MEDS: Lactated Ringers 1,000 ML 999 ML IV (20:50)
[2021-11-13 21:44] VITALS: BP 146/79; PULSE 88; RESP 18; TEMP 36.9; O2SAT 98
== END 2021-11-13 21:45 | disposition home or self-care (01) ==
PROVIDERS: Emergency Provider Emergency Medicine; PCP Family Medicine
DX: K57.30 Diverticulosis of large intestine without perforation or abscess without bleeding (principal); N20.0 Calculus of kidney; R10.32 Left lower quadrant pain; Z20.822 Contact with and (suspected) exposure to COVID-19
CPT/HCPCS: 74176; 80048; 80076; 81001; 81025; 83690; 85025; 87086; 87147; 87635; 96374; 96375; 99283; 99284; J2270; J2405

== ENCOUNTER 2022-01-04 20:09 | Emergency (ER) | payer MEDICAID, SELFPAY ==
--- NOTE | ~2022-01-04 | CT_ITS ---
EXAMINATION: CT ABDOMEN AND PELVIS WITH CONTRAST CLINICAL INFORMATION: Left-sided abdominal pain COMPARISON: CT abdomen pelvis 11/13/2021 TECHNIQUE: Multidetector volumetric images were obtained from the superior aspect of the liver through the pubic symphysis following administration 85 mL of Omnipaque 350 intravenous contrast. Sagittal and coronal reformatted images were obtained on the technologist's workstation. Oral contrast: No This CT examination was performed using dose optimization techniques as appropriate, variously including the following: *Automated exposure control *Adjustment of mA and/or kV according to patient size (this includes techniques or standardized protocols for targeted exams where dose is matched to indication/reason for exam; i.e. extremities or head) *Use of iterative reconstruction technique DLP: 419 mGy-cm FINDINGS: LUNG BASES: The visualized lung bases are unremarkable. LIVER, GALLBLADDER, AND BILIARY TREE: Punctate sub-5 mm hypodense focus in the lateral segment left liver lobe at the dome, likely a tiny cyst. No other liver lesion. Normal attenuation. No biliary ductal dilation. The gallbladder is unremarkable with no evidence of radiopaque gallstones, gallbladder wall thickening, or obvious pericholecystic inflammatory changes. PANCREAS: Unremarkable. SPLEEN: Unremarkable. ADRENAL GLANDS: Unremarkable. KIDNEYS AND URETERS: Approximately 4 nonobstructing right renal calculi, largest 4 mm in size in the midpole. Approximately 4 nonobstructing left renal calculi, largest 4 mm in the midpole. No ureteral calculi. No hydronephrosis. No perinephric stranding. BLADDER: Unremarkable. GASTROINTESTINAL TRACT: Status post prior sigmoidectomy with rectosigmoid anastomosis. A few scattered colonic diverticuli are noted. No findings of acute diverticulitis. No dilated bowel loops. No bowel wall thickening. Appendix is not discretely visualized. No inflammatory changes at the cecal base. No free air or ascites. ABDOMINAL WALL: Tiny fat-containing umbilical hernia. Healed midline lower abdominal incision. LYMPH NODES: No lymphadenopathy. VASCULAR: Normal caliber abdominal aorta. PELVIC VISCERA: IUD is appropriately positioned in the uterus. Gynecologic structures otherwise grossly unremarkable. OSSEOUS STRUCTURES: No acute fracture or suspicious osseous lesion. CT/CT abdomen pelvis w con IMPRESSION: 1. No acute intra-abdominal process. 2. Nonobstructing bilateral renal calculi. 3. Mild colonic diverticulosis. No evidence of acute diverticulitis.
[2022-01-04 20:17] VITALS: BP 124/79; PULSE 114; RESP 18; TEMP 36.7; O2SAT 96; BMI 24.3
[2022-01-04 20:29] LABS: MANUAL DIFF FLAG NO
[2022-01-04 20:39] LABS: Basophils Percent Auto 0.4 % (0-2); Eosinophils Absolute Auto 0.1 X10*3/uL (0.0-0.4); Eosinophils Percent Auto 1.6 % (0-4); Hematocrit 38.8 % (37.0-47.0); Hemoglobin 13.2 g/dl (12.0-16.0); Imm Gran Abs Auto 0.01 X10*3/uL (0.00-0.03); Imm Gran Pct Auto 0.1 % (0.0-0.4); Lymphocytes Absolute Auto 2.6 X10*3/uL (1.2-4.9); Mean Corpuscular Hemoglobin 29.7 pg (27.0-33.0); Mean Corpuscular Volume 87.2 fL (80.0-98.0); Mean Platelet Volume 9.1 fL (9.4-12.3); Monocytes Absolute Auto 0.7 X10*3/uL (0.1-1.2); Monocytes Percent Auto 9.6 % (2-11); Neutrophils Absolute Auto 3.5 x10*3/uL (2.0-8.3); Neutrophils Percent Auto 50.3 % (45-73); Platelet Count 378 X10*3/uL (160-400); Red Blood Count 4.45 X10*6/uL (4.20-5.50); Red Cell Distribution Width 11.8 % (11.0-16.0)
[2022-01-04 20:45] LABS: COVID-19 Test Negative (Negative); IDNOW Serial# 16C4AD1C
[2022-01-04 21:00] LABS: Alanine Aminotransferase 9 U/L (0-31); Albumin Level 4.1 g/dL (3.5-5.0); Alkaline Phosphatase 48 U/L (39-117); Anion Gap 13 (12-20); Aspartate Amino Transferase 14 U/L (5-31); Bilirubin Total 0.8 mg/dL (0.0-1.0); Blood Urea Nitrogen 15 mg/dL (9-16); Carbon Dioxide 25 mmol/L (22-29); Chloride 103 mmol/L (96-108); Creatinine Clr Calc Pharmacy 46.6; Estimated Glomerular Filt Rate 47; Glucose Random 86 mg/dL (60-115); Potassium 4.4 mmol/L (3.3-5.1); Sodium 137 mmol/L (135-145); Total Protein 6.8 g/dL (6.5-8.0)
--- NOTE | 2022-01-04 22:01 | ED_ITS ---
HPI - Abdominal Pain General Chief Complaint: Abdominal Pain Stated Complaint: pain in abd and side Time Seen by Provider: 01/04/22 21:50 Source: patient and old records reviewed Mode of arrival: ambulatory Limitations: no limitations History of Present Illness HPI narrative: 51 yo female hx of lupus, HTN, diverticulitis s/p rachel's procedure in past - had COVID 2.5 weeks ago was on paxlovid and completed course did well over the last few days she notes fevers, left upper abdominal pain and thinks her spleen is enlarged. She has mild nausea as well. Patient denies diarrhea MD elicited complaint: abdominal pain Pertinent past history: diverticulitis Onset (ago): day(s) (3) Pain Consistency: constant Location: LUQ and LLQ Severity: severe Quality: stabbing Radiation: none Migration to: no migration Exacerbating factors: movement Relieving factors: nothing Context: other (recent COVID and paxlovid course) Associated symptoms: nausea, fever and chills Related Data Home Medications Medication Instructions Recorded Confirmed bupropion HCl 300 mg 24 hr tablet, 1 tab PO DAILY 03/31/21 03/31/21 extended release buspirone 10 mg tablet 3 tab PO BEDTIME 03/31/21 03/31/21 cholecalciferol (vitamin D3) 25 25 mcg PO DAILY 03/31/21 03/31/21 mcg (1,000 unit) capsule (Vitamin D3) dextroamphetamine-amphetamine ER 1 cap PO QAM 03/31/21 03/31/21 30 mg 24hr capsule,extend release (Adderall XR) folic acid 1 mg tablet 1 mg PO DAILY 03/31/21 03/31/21 hydroxychloroquine 200 mg tablet 1 tab PO BID 03/31/21 03/31/21 losartan 50 mg-hydrochlorothiazide 1 tab PO DAILY 03/31/21 03/31/21 12.5 mg tablet meloxicam 15 mg tablet 1 tab PO DAILY PRN Pain 03/31/21 03/31/21 sumatriptan succinate 100 mg tablet 1 tab PO DAILY PRN Headache 03/31/21 03/31/21 vitamin B complex 1 tab PO DAILY 03/31/21 03/31/21 Previous Rx's Medication Instructions Recorded amoxicillin 875 mg-potassium 1 tab PO BID #14 tabs 11/13/21 clavulanate 125 mg tablet morphine 15 mg immediate release 15 mg PO TID PRN pain #10 tabs 11/13/21 tablet ondansetron 4 mg disintegrating 4 mg PO Q8H PRN nausea and 11/13/21 tablet vomiting #20 tabs cyclobenzaprine 10 mg tablet 10 mg PO TID PRN muscle spasm #14 01/05/22 tabs Allergies Allergy/AdvReac Type Severity Reaction Status Date / Time apple Allergy Severe ANAPHYLAXIS Verified 01/04/22 20:17 baker Allergy Severe ANAPHYLAXIS Verified 01/04/22 20:17 latex [LATEX] Allergy Severe ANAPHYLACTIC Verified 01/04/22 20:17 SHOCK peach [PEACH] Allergy Severe ANAPHYLAXIS Unverified 01/04/22 20:17 pear [PEAR] Allergy Severe ANAPHYLAXIS Verified 01/04/22 20:17 Review of Systems Review of Systems Constitutional : No Weight loss, pos Fever, pos Chills ENT/Mouth : No sore throat, No Rhinorrhea Eyes: No Swelling, No Redness Cardiovascular : No Chest Pain, No SOB, NoEdema Respiratory : No Cough, No Sputum, No Wheezing Gastrointestinal : Positive Nausea, no Vomiting, no Diarrhea, positive abdominal Pain, No Hematochezia, No Melena Genitourinary : No Dysuria, No Urinary Frequency, No Hematuria, No Urgency Musculoskeletal : No joint pain, No Myalgias, No Joint Swelling Skin : No Skin Lesions, No rash Neuro : No Weakness, No Numbness, No Dizziness, No Headache Psych : No Anxiety/Panic, No Depression Heme/Lymph: No Bruising, No Lymphadenopathy Endocrine : No Polyuria, No Polydipsia All other systems reviewed and are negative. [facility] Past Medical History Attestation statement: The following information was validated with the patient. Medical History ADD (attention deficit disorder) ADHD Depression Diverticulitis History of ischemic colitis HTN (hypertension) Hx of migraines Hx of pneumothorax Hx of renal calculi Lupus PONV (postoperative nausea and vomiting) Surgical History History of colon resection History of cystoscopy History of esophagogastroduodenoscopy (EGD) History of lithotripsy Hx of colonoscopy Social History Social History Alcohol intake: never Patient Tobacco Use Status: Never used Tobacco Second Hand Smoke Exposure: No Advance Directives: No Advance Directives Information Provided: No Physical Exam ED Vital Signs: Vital Signs - 24 hr 01/04/22 20:17 Temperature 98.0 F Pulse Rate 114 H Respiratory Rate 18 Blood Pressure 124/79 Pulse Oximetry 96 Oxygen Delivery Method Room Air BMI result Body Mass Index 24.3 Appearance: Alert. Oriented X3. No acute distress. Eyes: Pupils equal, round and reactive to light. ENT: Pharynx normal. Neck: Normal inspection. Neck supple. CVS: Normal heart rate and rhythm. Pulses normal. Respiratory: No respiratory distress. Breath sounds normal. Abdomen: Soft and moderate ttp in LLQ without rebound but vol guarding, no mass felt or enlargement in in LUQ Skin: Skin warm and dry. Normal skin color. Normal skin turgor. Extremities: No lower extremity edema. No calf ttp Neuro: Oriented X 3. No motor deficit. No sensory deficit. Course Course Course Narrative: LABS, CT SCAN AND URINE WITHIN NORMAL LIMITS GIVEN SYMPTOMS X 3 DAYS STABLE FOR DC AT THIS TIME MDM - Abdominal Pain MDM Narrative Medical decision making narrative: 51 yo female hx of lupus, HTN, diverticulitis s/p rachel's procedure in past now with c/o L sided abdominal pain and fevers at this time will obtain labs, UA, CT scan for diverticulitis. She denies chest pain/sob. Her symptoms are mostly in her abdomen. IVF and IV morphine for pain. Dispo per results and findings. Lab Data Result diagrams: 01/04/22 20:22 01/04/22 20:22 Labs: Lab Results 01/04/22 01/04/22 01/04/22 Range/Units 20:22 20:22 20:22 WBC 7.0 (4.8-10.8) X10*3/uL RBC 4.45 (4.20-5.50) X10*6/uL Hgb 13.2 (12.0-16.0) g/dl Hct 38.8 (37.0-47.0) % MCV 87.2 (80.0-98.0) fL MCH 29.7 (27.0-33.0) pg MCHC 34.0 (31.0-35.0) g/dl RDW 11.8 (11.0-16.0) % Plt Count 378 D (160-400) X10*3/uL MPV 9.1 L (9.4-12.3) fL Immature Gran % (Auto) 0.1 (0.0-0.4) % Neut % (Auto) 50.3 (45-73) % Lymph % (Auto) 38.0 (20-40) % Stephenson % (Auto) 9.6 (2-11) % Eos % (Auto) 1.6 (0-4) % Baso % (Auto) 0.4 (0-2) % Lymph # (Auto) 2.6 (1.2-4.9) X10*3/uL Stephenson # (Auto) 0.7 (0.1-1.2) X10*3/uL Eos # (Auto) 0.1 (0.0-0.4) X10*3/uL Baso # (Auto) 0.0 (0.0-0.2) X10*3/uL Abs Immat Gran (auto) 0.01 (0.00-0.03) X10*3/uL Absolute Neuts (auto) 3.5 (2.0-8.3) x10*3/uL Absolute Nucleated RBC 0.000 (0.0-0.012) X10*3/uL Nucleated RBC % (auto) 0.0 (0.0-0.2) /100WBC Sodium 137 (135-145) mmol/L Potassium 4.4 (3.3-5.1) mmol/L Chloride 103 (96-108) mmol/L Carbon Dioxide 25 (22-29) mmol/L Anion Gap 13 (12-20) BUN 15 (9-16) mg/dL Creatinine 1.21 (0.5-1.4) mg/dL Estim Creat Clear Calc 46.6 Estimated GFR 47 Random Glucose 86 (60-115) mg/dL Calcium 9.0 (8.4-10.2) mg/dL Total Bilirubin 0.8 (0.0-1.0) mg/dL AST 14 (5-31) U/L ALT 9 (0-31) U/L Alkaline Phosphatase 48 (39-117) U/L Total Protein 6.8 (6.5-8.0) g/dL Albumin 4.1 (3.5-5.0) g/dL Urine Color Urine Appearance Urine pH (5.0-8.0) Ur Specific [place] (1.005-1.025) Urine Protein (NEG-TRACE) MG/DL Urine Glucose (UA) (NEG) MG/DL Urine Ketones (NEG) MG/DL Urine Blood (NEG) Urine Nitrite (NEG) Ur Leukocyte Esterase (NEG) COVID-19 (ERIN) Negative (Negative) COVID-19 Clin Com See Note 01/04/22 Range/Units 23:59 WBC (4.8-10.8) X10*3/uL RBC (4.20-5.50) X10*6/uL Hgb (12.0-16.0) g/dl Hct (37.0-47.0) % MCV (80.0-98.0) fL MCH (27.0-33.0) pg MCHC (31.0-35.0) g/dl RDW (11.0-16.0) % Plt Count (160-400) X10*3/uL MPV (9.4-12.3) fL Immature Gran % (Auto) (0.0-0.4) % Neut % (Auto) (45-73) % Lymph % (Auto) (20-40) % Stephenson % (Auto) (2-11) % Eos % (Auto) (0-4) % Baso % (Auto) (0-2) % Lymph # (Auto) (1.2-4.9) X10*3/uL Stephenson # (Auto) (0.1-1.2) X10*3/uL Eos # (Auto) (0.0-0.4) X10*3/uL Baso # (Auto) (0.0-0.2) X10*3/uL Abs Immat Gran (auto) (0.00-0.03) X10*3/uL Absolute Neuts (auto) (2.0-8.3) x10*3/uL Absolute Nucleated RBC (0.0-0.012) X10*3/uL Nucleated RBC % (auto) (0.0-0.2) /100WBC Sodium (135-145) mmol/L Potassium (3.3-5.1) mmol/L Chloride (96-108) mmol/L Carbon Dioxide (22-29) mmol/L Anion Gap (12-20) BUN (9-16) mg/dL Creatinine (0.5-1.4) mg/dL Estim Creat Clear Calc Estimated GFR Random Glucose (60-115) mg/dL Calcium (8.4-10.2) mg/dL Total Bilirubin (0.0-1.0) mg/dL AST (5-31) U/L ALT (0-31) U/L Alkaline Phosphatase (39-117) U/L Total Protein (6.5-8.0) g/dL Albumin (3.5-5.0) g/dL Urine Color YELLOW Urine Appearance CLEAR Urine pH 7.0 (5.0-8.0) Ur Specific [place] <= 1.005 (1.005-1.025) Urine Protein NEG (NEG-TRACE) MG/DL Urine Glucose (UA) NEG (NEG) MG/DL Urine Ketones NEG (NEG) MG/DL Urine Blood NEG (NEG) Urine Nitrite NEG (NEG) Ur Leukocyte Esterase NEG (NEG) COVID-19 (ERIN) (Negative) COVID-19 Clin Com Discharge Plan Discharge Clinical Impression: Abdominal pain Qualifiers: Abdominal location: left lower quadrant Qualified Code(s): R10.32 - Left lower quadrant pain Patient Disposition: Home, Self-Care Instructions: Abdominal Pain (ED) Additional Instructions: return to ED for any worsening symptoms or concerns FINDINGS: LUNG BASES: The visualized lung bases are unremarkable.? LIVER, GALLBLADDER, AND BILIARY TREE: Punctate sub-5 mm hypodense focus in the lateral segment left liver lobe at the dome, likely a tiny cyst. No other liver lesion. Normal attenuation. No biliary ductal dilation. The gallbladder is unremarkable with no evidence of radiopaque gallstones, gallbladder wall thickening, or obvious pericholecystic inflammatory changes.? PANCREAS: Unremarkable.? SPLEEN: Unremarkable.? ADRENAL GLANDS: Unremarkable.? KIDNEYS AND URETERS: Approximately 4 nonobstructing right renal calculi, largest 4 mm in size in the midpole. Approximately 4 nonobstructing left renal calculi, largest 4 mm in the midpole. No ureteral calculi. No hydronephrosis. No perinephric stranding. BLADDER: Unremarkable.? GASTROINTESTINAL TRACT: Status post prior sigmoidectomy with rectosigmoid anastomosis. A few scattered colonic diverticuli are noted. No findings of acute diverticulitis. No dilated bowel loops. No bowel wall thickening. Appendix is not discretely visualized. No inflammatory changes at the cecal base. No free air or ascites.? ABDOMINAL WALL: Tiny fat-containing umbilical hernia. Healed midline lower abdominal incision.? LYMPH NODES: No lymphadenopathy. VASCULAR: Normal caliber abdominal aorta. PELVIC VISCERA: IUD is appropriately positioned in the uterus. Gynecologic structures otherwise grossly unremarkable.? OSSEOUS STRUCTURES: No acute fracture or suspicious osseous lesion.? CT/CT abdomen pelvis w con IMPRESSION: ? 1. No acute intra-abdominal process. 2. Nonobstructing bilateral renal calculi. 3. Mild colonic diverticulosis. No evidence of acute diverticulitis.? Prescriptions: New cyclobenzaprine 10 mg tablet 10 mg PO TID PRN (Reason: muscle spasm) Qty: 14 0RF No Action meloxicam 15 mg tablet 1 tab PO DAILY PRN (Reason: Pain) buspirone 10 mg tablet 3 tab PO BEDTIME vitamin B complex Tablet 1 tab PO DAILY folic acid 1 mg Tablet 1 mg PO DAILY losartan-hydrochlorothiazide 50-12.5 mg tablet 1 tab PO DAILY dextroamphetamine-amphetamine [Adderall XR] 30 mg capsule,extended release 24hr 1 cap PO QAM cholecalciferol (vitamin D3) [Vitamin D3] 25 mcg (1,000 unit) Capsule 25 mcg PO DAILY bupropion HCl 300 mg tablet extended release 24 hr 1 tab PO DAILY sumatriptan succinate 100 mg tablet 1 tab PO DAILY PRN (Reason: Headache) hydroxychloroquine 200 mg tablet 1 tab PO BID morphine 15 mg tablet 15 mg PO TID PRN (Reason: pain) Qty: 10 0RF Rx Instructions: partial fill okay; Partial Fill upon patient request. ondansetron 4 mg tablet,disintegrating 4 mg PO Q8H PRN (Reason: nausea and vomiting) Qty: 20 0RF amoxicillin-pot clavulanate 875-125 mg tablet 1 tab PO BID Qty: 14 0RF Referrals: Isable Valentino MD [Primary Care Provider] - (if not better in 2 days)
[2022-01-04] MEDS: Morphine Sulfate 4 MG/ML CARTRIDGE IVPUSH (22:31)
[2022-01-04] MEDS: ondansetron HCL 4 MG/2 ML VIAL IVPUSH (22:31)
[2022-01-04] MEDS: Lactated Ringers 1,000 ML 999 ML IV (22:31)
[2022-01-04] MEDS: iohexoL 350 MG/ML 100 ML INFUS..BTL 85 ML IV (23:07)
[2022-01-05 00:06] LABS: Appearance Urine CLEAR; Color Urine YELLOW; Glucose Urine UA NEG (NEG); Leukocyte Esterase Urine NEG (NEG); Nitrite Urine NEG (NEG); Specific Gravity - Urine <= 1.005 (1.005-1.025); Urine Blood NEG (NEG); Urine Ketones NEG (NEG); Urine Protein NEG (NEG-TRACE)
[2022-01-05 00:43] VITALS: BP 136/77; PULSE 82; RESP 16; O2SAT 100
[2022-01-05] MEDS: Cyclobenzaprine HCl 10 MG TABLET PO (00:45)
== END 2022-01-05 00:49 | disposition home or self-care (01) ==
PROVIDERS: Emergency Provider Emergency Medicine; PCP Family Medicine
DX: R10.12 Left upper quadrant pain (principal); R10.32 Left lower quadrant pain; Z79.899 Other long term (current) drug therapy; Z20.822 Contact with and (suspected) exposure to COVID-19
CPT/HCPCS: 74177; 80053; 81003; 85025; 87635; 96365; 96375; 99284; J2270; J2405; Q9967

== ENCOUNTER 2022-03-02 19:54 | Emergency (ER) | payer MEDICAID, SELFPAY ==
[2022-03-02 21:57] VITALS: BP 160/84; PULSE 103; RESP 16; TEMP 36.7; O2SAT 100; BMI 23.8
[2022-03-02 22:11] LABS: MANUAL DIFF FLAG NO
[2022-03-02 22:14] LABS: Basophils Percent Auto 0.3 % (0-2); Eosinophils Absolute Auto 0.1 X10*3/uL (0.0-0.4); Eosinophils Percent Auto 0.9 % (0-4); Hematocrit 43.3 % (37.0-47.0); Hemoglobin 14.9 g/dl (12.0-16.0); Imm Gran Abs Auto 0.03 X10*3/uL (0.00-0.03); Imm Gran Pct Auto 0.4 % (0.0-0.4); Lymphocytes Absolute Auto 2.5 X10*3/uL (1.2-4.9); Mean Corpuscular HGB Conc 34.4 g/dl (31.0-35.0); Mean Corpuscular Volume 87.1 fL (80.0-98.0); Mean Platelet Volume 8.9 fL (9.4-12.3); Monocytes Absolute Auto 0.5 X10*3/uL (0.1-1.2); Monocytes Percent Auto 6.8 % (2-11); Neutrophils Absolute Auto 4.8 x10*3/uL (2.0-8.3); Neutrophils Percent Auto 60.6 % (45-73); Platelet Count 380 X10*3/uL (160-400); Red Blood Count 4.97 X10*6/uL (4.20-5.50)
[2022-03-02 22:27] LABS: Anion Gap 16 (12-20); Blood Urea Nitrogen 9 mg/dL (9-16); Calcium 10.1 mg/dL (8.4-10.2); Carbon Dioxide 28 mmol/L (22-29); Chloride 101 mmol/L (96-108); Creatinine Clr Calc Pharmacy 52.5; Estimated Glomerular Filt Rate 59; Glucose Random 73 mg/dL (60-115); Potassium 3.3 mmol/L (3.3-5.1); Sodium 142 mmol/L (135-145)
[2022-03-02 22:31] LABS: COVID-19 Test Negative (Negative)
== END 2022-03-03 02:13 | disposition left against medical advice (07) ==
PROVIDERS: Emergency Provider Emergency Medicine; PCP Family Medicine
DX: R10.32 Left lower quadrant pain (principal); Z20.822 Contact with and (suspected) exposure to COVID-19; Z79.899 Other long term (current) drug therapy
CPT/HCPCS: 80048; 85025; 87635; 99281; 99283

== ENCOUNTER 2022-03-03 12:31 | Emergency (ER) | payer MEDICAID, SELFPAY ==
--- NOTE | ~2022-03-03 | CT_ITS ---
EXAMINATION: CT ABDOMEN AND PELVIS WITH CONTRAST CLINICAL INFORMATION: Left lower quadrant pain. History of diverticulitis. COMPARISON: Previous CT of the abdomen and pelvis most recent December 2021 TECHNIQUE: Multidetector volumetric images were obtained from the superior aspect of the liver through the pubic symphysis following administration 85 mL of Omnipaque 350 intravenous contrast. Sagittal and coronal reformatted images were obtained on the technologist's workstation. Oral contrast: Yes This CT examination was performed using dose optimization techniques as appropriate, variously including the following: *Automated exposure control *Adjustment of mA and/or kV according to patient size (this includes techniques or standardized protocols for targeted exams where dose is matched to indication/reason for exam; i.e. extremities or head) *Use of iterative reconstruction technique DLP: 385 mGy-cm FINDINGS: LUNG BASES: The visualized lung bases are unremarkable. LIVER, GALLBLADDER, AND BILIARY TREE: The liver is normal in size, shape, and attenuation. Small 4 mm low-attenuation lesion in the right lobe of the liver axial image 25 stable. This is difficult to characterize due to small size. No other focal hepatic lesion or biliary ductal dilatation is present. The gallbladder is unremarkable with no evidence of radiopaque gallstones, gallbladder wall thickening, or obvious pericholecystic inflammatory changes. PANCREAS: Unremarkable. SPLEEN: Unremarkable. ADRENAL GLANDS: Unremarkable. KIDNEYS AND URETERS: There are bilateral nonobstructing renal stones. The kidneys are otherwise normal. BLADDER: Unremarkable. GASTROINTESTINAL TRACT: There are postsurgical changes to the distal sigmoid colon or upper rectum. Small and large bowel is otherwise unremarkable. The appendix is not seen. The stomach is unremarkable. ABDOMINAL WALL: There are small umbilical or periumbilical hernia containing fat. LYMPH NODES: Normal. VASCULAR: Unremarkable. PELVIC VISCERA: There is an IUD in the uterus in satisfactory position. Uterus and adnexa are otherwise unremarkable. OSSEOUS STRUCTURES: Unremarkable. CT/CT abdomen pelvis w IV con IMPRESSION: Bilateral renal stones. No hydronephrosis or ureteral dilatation or ureteral stone. IUD in the uterus in satisfactory position. Postsurgical changes to the distal colon or upper rectum. No evidence of diverticulitis. Fleischner guidelines were followed.
[2022-03-03 12:40] VITALS: BP 149/103; PULSE 99; RESP 18; TEMP 37.1; O2SAT 99; BMI 23.8
[2022-03-03 14:00] LABS: MANUAL DIFF FLAG NO
[2022-03-03 14:01] LABS: Basophils Percent Auto 0.4 % (0-2); Eosinophils Absolute Auto 0.2 X10*3/uL (0.0-0.4); Hematocrit 41.9 % (37.0-47.0); Hemoglobin 14.2 g/dl (12.0-16.0); Imm Gran Abs Auto 0.01 X10*3/uL (0.00-0.03); Imm Gran Pct Auto 0.2 % (0.0-0.4); Mean Corpuscular HGB Conc 33.9 g/dl (31.0-35.0); Mean Corpuscular Hemoglobin 29.8 pg (27.0-33.0); Mean Platelet Volume 8.8 fL (9.4-12.3); Monocytes Absolute Auto 0.5 X10*3/uL (0.1-1.2); Monocytes Percent Auto 9.1 % (2-11); Neutrophils Absolute Auto 2.5 x10*3/uL (2.0-8.3); Neutrophils Percent Auto 48.3 % (45-73); Platelet Count 349 X10*3/uL (160-400); Red Blood Count 4.76 X10*6/uL (4.20-5.50); White Blood Count 5.1 X10*3/uL (4.8-10.8)
[2022-03-03 14:15] LABS: Anion Gap 15 (12-20); Blood Urea Nitrogen 10 mg/dL (9-16); Calcium 9.5 mg/dL (8.4-10.2); Carbon Dioxide 28 mmol/L (22-29); Chloride 102 mmol/L (96-108); Creatinine Clr Calc Pharmacy 55.9; Estimated Glomerular Filt Rate > 60; Glucose Random 89 mg/dL (60-115); Potassium 3.5 mmol/L (3.3-5.1); Sodium 141 mmol/L (135-145)
[2022-03-03 20:19] VITALS: BP 147/92; PULSE 102; TEMP 36.8; O2SAT 98
[2022-03-03 20:33] LABS: Appearance Urine Clear; Color Urine Yellow; Glucose Urine UA Negative (Negative); Leukocyte Esterase Urine Trace (Negative); Nitrite Urine Negative (Negative); PH 7.5 (5.0-9.0); UMIC TRIGGER UACC YES; Urine Blood Negative (Negative); Urine Ketones Negative (Negative); Urine Protein Negative (Neg-Trace)
--- NOTE | 2022-03-03 20:37 | ED_ITS ---
HPI - General Adult General Chief complaint: General Medical Stated complaint: diverticulitis Time Seen by Provider: 03/03/22 20:11 Source: patient and family () Mode of arrival: ambulatory Limitations: no limitations History of Present Illness HPI narrative: 51-year-old female came in for evaluation of left lower quadrant pain. Pain started 3 days ago, has been constant and severe 8/10, no aggravating f actor, no relieving factor, pain is associated with nausea and vomiting, do not remember when was the last bowel movement but passing flatus. Patient had similar pain in the past and was due to diverticulitis, patient had complicated diverticular disease in the past require colon resection. Patient had a remote history of appendectomy. No urinary frequency, no dysuria, no blood in the urine. Related Data Home Medications Medication Instructions Recorded Confirmed bupropion HCl 300 mg 24 hr tablet, 1 tab PO DAILY 03/31/21 03/31/21 extended release buspirone 10 mg tablet 3 tab PO BEDTIME 03/31/21 03/31/21 cholecalciferol (vitamin D3) 25 25 mcg PO DAILY 03/31/21 03/31/21 mcg (1,000 unit) capsule (Vitamin D3) dextroamphetamine-amphetamine ER 1 cap PO QAM 03/31/21 03/31/21 30 mg 24hr capsule,extend release (Adderall XR) folic acid 1 mg tablet 1 mg PO DAILY 03/31/21 03/31/21 hydroxychloroquine 200 mg tablet 1 tab PO BID 03/31/21 03/31/21 losartan 50 mg-hydrochlorothiazide 1 tab PO DAILY 03/31/21 03/31/21 12.5 mg tablet meloxicam 15 mg tablet 1 tab PO DAILY PRN Pain 03/31/21 03/31/21 sumatriptan succinate 100 mg tablet 1 tab PO DAILY PRN Headache 03/31/21 03/31/21 vitamin B complex 1 tab PO DAILY 03/31/21 03/31/21 Previous Rx's Medication Instructions Recorded amoxicillin 875 mg-potassium 1 tab PO BID #14 tabs 11/13/21 clavulanate 125 mg tablet morphine 15 mg immediate release 15 mg PO TID PRN pain #10 tabs 11/13/21 tablet ondansetron 4 mg disintegrating 4 mg PO Q8H PRN nausea and 11/13/21 tablet vomiting #20 tabs cyclobenzaprine 10 mg tablet 10 mg PO TID PRN muscle spasm #14 01/05/22 tabs Allergies Allergy/AdvReac Type Severity Reaction Status Date / Time apple Allergy Severe ANAPHYLAXIS Verified 01/04/22 20:17 baker Allergy Severe ANAPHYLAXIS Verified 01/04/22 20:17 latex [LATEX] Allergy Severe ANAPHYLACTIC Verified 01/04/22 20:17 SHOCK peach [PEACH] Allergy Severe ANAPHYLAXIS Unverified 01/04/22 20:17 pear [PEAR] Allergy Severe ANAPHYLAXIS Verified 01/04/22 20:17 Review of Systems Review of Systems: All other systems are reviewed and are negative Constitutional: Reports as per HPI and Reports no additional constitutional complaints Eyes: Reports as per HPI and Reports no additional eye complaints Reports system reviewed and no additional complaints, except as documented Cardiovascular: Reports as per HPI and Reports no additional cardiovascular complaints Respiratory: Reports as per HPI and Reports no additional respiratory complaints Gastrointestinal: Reports as per HPI and Reports no additional gastrointestinal complaints Genitourinary: Reports no additional female genitourinary complaints Musculoskeletal: Reports no additional musculoskeletal complaints Skin/Breast: Reports system reviewed and no additional complaints, except as docu Psychiatric: Reports no additional psychiatric complaints Endocrine: Reports no additional endocrine complaints Hematologic/Lymphatic: Reports no additional hematologic/lymphatic complaints Allergic/Immunologic: Reports no additional allergic/immunologic complaints Reports system reviewed and no additional complaints, except as documented and Reports Abnormal speech present [facility] Past Medical History Medical History ADD (attention deficit disorder) ADHD Depression Diverticulitis History of ischemic colitis HTN (hypertension) Hx of migraines Hx of pneumothorax Hx of renal calculi Lupus PONV (postoperative nausea and vomiting) Surgical History History of colon resection History of cystoscopy History of esophagogastroduodenoscopy (EGD) History of lithotripsy Hx of colonoscopy Social History Social History Alcohol intake: never Patient Tobacco Use Status: Never used Tobacco Second Hand Smoke Exposure: No Use of substances other than those prescribed or required for medical reasons: Yes Substance Use Type: Marijuana Substance Use Frequency: Chronic Longstanding Advance Directives: No Physical Exam ED Vital Signs: Vital Signs - 24 hr 03/03/22 12:40 03/03/22 20:19 03/03/22 22:05 Temperature 98.8 F 98.3 F Pulse Rate 99 102 H 93 Respiratory Rate 18 18 Blood Pressure 149/103 H 147/92 H 141/93 H Pulse Oximetry 99 98 98 Oxygen Delivery Method Room Air Room Air Room Air BMI result Body Mass Index 23.8 Vital signs have been reviewed as appeared to be correct. Blood pressure normal. Heart rate normal. Respiration rate normal. Temperature normal. Oxygen saturation normal. Appearance: Alert. Oriented X3. No acute distress. Head: Normal external exam. Normocephalic. Atraumatic. No [place] signs noted. No raccoon eyes noted Eyes: PERRLA. EOMI. Conjunctiva and sclera normal. Eyelids normal. ENT: TM's Normal. Pharynx normal. Uvula midline. Moist mucous membranes. No trismus noted. No drooling noted. No muffled voice noted. Neck: Normal inspection. Neck supple. FROM. No adenopathy. Thyroid Normal. No meningeal signs. No neck mass noted. CVS: Normal heart rate and rhythm. Heart sound normal. No murmurs noted. Pulses normal throughout. Respiratory: No respiratory distress. Painless inspiration. Breath sounds normal. No wheezes/rales/rhonchi noted. Chest nontender. No accessory muscle usage noted or decreased air movement noted. Abdomen: Soft, mild left lower quadrant tenderness, no rebound tenderness, no guarding. Bowel sounds normal in all 4 quadrants. No distention noted. No organomegaly noted. No visible injury noted. Back: No CVA tenderness. Full range of motion noted. Skin: Skin warm and dry. Normal skin color. Normal skin turgor. No rashes/lesions/lacerations noted. Extremities: No lower extremity edema. Extremities exhibit normal range of motion. Extremities nontender. Neuro: Oriented X 3. Cranial nerve exam: II-XII are grossly intact No motor deficit. No sensory deficit. Reflexes normal. Course Course Course Narrative: 51-year-old female came in for evaluation of left lower quadrant pain for the past 3 days patient had history of complicated diverticular disease with history of colectomy in the past. No leukocytosis, CT of the abdomen pelvis is showing no evidence of acute diverticulitis or any other intra-abdominal pathology. Patient was reassured, and instructed to look for worsening of abdominal pain or fever or chills to return to the ED. Medical Decision Making Lab Data Lab results reviewed: Yes I reviewed the patient's lab results. Result diagrams: 03/03/22 13:49 03/03/22 13:49 Labs: Lab Results 03/03/22 03/03/22 03/03/22 Range/Units 13:49 13:49 20:26 WBC 5.1 (4.8-10.8) X10*3/uL RBC 4.76 (4.20-5.50) X10*6/uL Hgb 14.2 (12.0-16.0) g/dl Hct 41.9 (37.0-47.0) % MCV 88.0 (80.0-98.0) fL MCH 29.8 (27.0-33.0) pg MCHC 33.9 (31.0-35.0) g/dl RDW 12.0 (11.0-16.0) % Plt Count 349 (160-400) X10*3/uL MPV 8.8 L (9.4-12.3) fL Immature Gran % (Auto) 0.2 (0.0-0.4) % Neut % (Auto) 48.3 (45-73) % Lymph % (Auto) 39.0 (20-40) % [place] % (Auto) 9.1 (2-11) % Eos % (Auto) 3.0 (0-4) % Baso % (Auto) 0.4 (0-2) % Lymph # (Auto) 2.0 (1.2-4.9) X10*3/uL [place] # (Auto) 0.5 (0.1-1.2) X10*3/uL Eos # (Auto) 0.2 (0.0-0.4) X10*3/uL Baso # (Auto) 0.0 (0.0-0.2) X10*3/uL Abs Immat Gran (auto) 0.01 (0.00-0.03) X10*3/uL Absolute Neuts (auto) 2.5 (2.0-8.3) x10*3/uL Absolute Nucleated RBC 0.000 (0.0-0.012) X10*3/uL Nucleated RBC % (auto) 0.0 (0.0-0.2) /100WBC Sodium 141 (135-145) mmol/L Potassium 3.5 (3.3-5.1) mmol/L Chloride 102 (96-108) mmol/L Carbon Dioxide 28 (22-29) mmol/L Anion Gap 15 (12-20) BUN 10 (9-16) mg/dL Creatinine 0.93 (0.5-1.4) mg/dL Estim Creat Clear Calc 55.9 Estimated GFR > 60 Random Glucose 89 (60-115) mg/dL Calcium 9.5 (8.4-10.2) mg/dL Total Bilirubin 0.8 (0.0-1.0) mg/dL Direct Bilirubin 0.3 (0.0-0.5) mg/dL AST 20 D (5-31) U/L ALT 21 (0-31) U/L Alkaline Phosphatase 49 (39-117) U/L Total Protein 7.5 (6.5-8.0) g/dL Albumin 4.6 (3.5-5.0) g/dL Lipase 15 (8-78) U/L Urine Color Yellow Urine Appearance Clear Urine pH 7.5 (5.0-9.0) Ur Specific [place] 1.010 (1.005-1.025) Urine Protein Negative (Neg-Trace) mg/dL Urine Glucose (UA) Negative (Negative) mg/dL Urine Ketones Negative (Negative) mg/dL Urine Blood Negative (Negative) Urine Nitrite Negative (Negative) Ur Leukocyte Esterase Trace H (Negative) Urine RBC 0-2 (0-2) /HPF Urine WBC 0-5 (0-5) /HPF Ur Squamous Epith Cells 0-2 (0-2) /HPF Urine Bacteria None Seen (None Seen) Hyaline Casts 0-2 (0-2) /LPF Imaging Data CT scan - abdomen: Attestation: I personally reviewed and interpreted this imaging study as follows: Radiologist's impression: Bilateral renal stones. No hydronephrosis or ureteral dilatation or ureteral stone. IUD in the uterus in satisfactory position. Postsurgical changes to the distal colon or upper rectum. No evidence of diverticulitis.? ? Discharge Plan Discharge Clinical Impression: Abdominal pain Patient Disposition: Home, Self-Care Instructions: Abdominal Pain (ED) Prescriptions: No Action meloxicam 15 mg tablet 1 tab PO DAILY PRN (Reason: Pain) buspirone 10 mg tablet 3 tab PO BEDTIME vitamin B complex Tablet 1 tab PO DAILY folic acid 1 mg Tablet 1 mg PO DAILY losartan-hydrochlorothiazide 50-12.5 mg tablet 1 tab PO DAILY dextroamphetamine-amphetamine [Adderall XR] 30 mg capsule,extended release 24hr 1 cap PO QAM cholecalciferol (vitamin D3) [Vitamin D3] 25 mcg (1,000 unit) Capsule 25 mcg PO DAILY bupropion HCl 300 mg tablet extended release 24 hr 1 tab PO DAILY sumatriptan succinate 100 mg tablet 1 tab PO DAILY PRN (Reason: Headache) hydroxychloroquine 200 mg tablet 1 tab PO BID morphine 15 mg tablet 15 mg PO TID PRN (Reason: pain) Qty: 10 0RF Rx Instructions: partial fill okay; Partial Fill upon patient request. ondansetron 4 mg tablet,disintegrating 4 mg PO Q8H PRN (Reason: nausea and vomiting) Qty: 20 0RF amoxicillin-pot clavulanate 875-125 mg tablet 1 tab PO BID Qty: 14 0RF cyclobenzaprine 10 mg tablet 10 mg PO TID PRN (Reason: muscle spasm) Qty: 14 0RF Referrals: Isabel Valentino MD [Primary Care Provider] -
[2022-03-03 20:58] LABS: Alanine Aminotransferase 21 U/L (0-31); Albumin Level 4.6 g/dL (3.5-5.0); Alkaline Phosphatase 49 U/L (39-117); Aspartate Amino Transferase 20 U/L (5-31); Bilirubin Direct 0.3 mg/dL (0.0-0.5); Bilirubin Total 0.8 mg/dL (0.0-1.0); Lipase 15 U/L (8-78); Total Protein 7.5 g/dL (6.5-8.0)
--- NOTE | 2022-03-03 21:34 | PC.NURSE ---
20G IV left AC, pt to CT.
[2022-03-03] MEDS: iohexoL 350 MG/ML 100 ML INFUS..BTL IV (21:42)
[2022-03-03] MEDS: ondansetron HCL 4 MG/2 ML VIAL IVPUSH (21:54)
[2022-03-03] MEDS: 0.9 % Sodium Chloride 1,000 ML 999 ML IV (21:55)
[2022-03-03] MEDS: Morphine Sulfate 2 MG/ML CARTRIDGE 1 MG IVPUSH (21:55)
[2022-03-03 22:05] VITALS: BP 141/93; PULSE 93; RESP 18; O2SAT 98
--- NOTE | 2022-03-03 22:07 | PC.NURSE ---
pt a&ox3, vss - hypertensive, reporting 8/10 abd pain, NaCl running, medicated per provider order. no new orders at this time.
[2022-03-03 22:56] LABS: Bacteria Urine None Seen (None Seen); Hyaline Casts Urine 0-2 /LPF (0-2); RBC Urine 0-2 /HPF (0-2); Squamous Epithelial Cell Urine 0-2 /HPF (0-2); WBC Urine 0-5 /HPF (0-5)
[2022-03-03 23:46] VITALS: BP 154/84; PULSE 88; RESP 18; O2SAT 96
== END 2022-03-03 23:55 | disposition home or self-care (01) ==
PROVIDERS: Emergency Provider Emergency Medicine; PCP Family Medicine
DX: R10.13 Epigastric pain (principal); R10.32 Left lower quadrant pain; Z79.899 Other long term (current) drug therapy
CPT/HCPCS: 36415; 74177; 80048; 80076; 81001; 83690; 85025; 96374; 96375; 99284; J2270; J2405; Q9967

== ENCOUNTER 2022-10-16 02:52 | Emergency (ER) | payer MEDICAID, SELFPAY ==
--- NOTE | ~2022-10-16 | CT_ITS ---
EXAMINATION: CT ABDOMEN AND PELVIS WITH CONTRAST CLINICAL INFORMATION: Left lower quadrant pain, history perforated diverticulitis COMPARISON: 03/03/2022 TECHNIQUE: Multidetector volumetric images were obtained from the superior aspect of the liver through the pubic symphysis following administration 85 mL of Omnipaque 350 intravenous contrast. Sagittal and coronal reformatted images were obtained on the technologist's workstation. Oral contrast: No This CT examination was performed using dose optimization techniques as appropriate, variously including the following: *Automated exposure control *Adjustment of mA and/or kV according to patient size (this includes techniques or standardized protocols for targeted exams where dose is matched to indication/reason for exam; i.e. extremities or head) *Use of iterative reconstruction technique DLP: 447 mGy-cm FINDINGS: LUNG BASES: The visualized lung bases are unremarkable. LIVER, GALLBLADDER, AND BILIARY TREE: The liver is normal in size, shape, and attenuation. No focal hepatic lesion or biliary ductal dilatation is present. Gallbladder is physiologically distended. There is suggestion of adenomyomatosis of the gallbladder fundus. Gallbladder has a somewhat thick-walled appearance. No densely calcified gallstones are seen. PANCREAS: Unremarkable. SPLEEN: Unremarkable. ADRENAL GLANDS: Unremarkable. KIDNEYS AND URETERS: Prominent bilateral extrarenal pelvises. No obstructing calculus is seen. Several scattered small bilateral renal calculi noted. BLADDER: Unremarkable. GASTROINTESTINAL TRACT: Suture line is present in the sigmoid colon. Scattered diverticulosis of the descending colon, without diverticulitis. No evidence of bowel obstruction. No free fluid or free air is seen. ABDOMINAL WALL: No significant hernia is appreciated. LYMPH NODES: Normal. VASCULAR: Unremarkable. PELVIC VISCERA: IUD is present in the uterus. OSSEOUS STRUCTURES: Unremarkable. CT/CT abdomen pelvis w IV con IMPRESSION: 1. Colonic diverticulosis without diverticulitis. 2. Somewhat thick-walled appearance of the gallbladder, which can be seen with cholecystitis in the proper clinical setting. If clinically warranted, this may be further assessed with ultrasound. 3. Suggestion of adenomyomatosis of the gallbladder fundus.
[2022-10-16 02:54] VITALS: BP 106/70; PULSE 110; RESP 18; TEMP 36.6; O2SAT 96; BMI 21.6
--- NOTE | 2022-10-16 03:34 | ED.ABDPAIN ---
HPI - Abdominal Pain General Chief Complaint: Abdominal Pain Stated Complaint: abdominal pain/swelling/n/v/history of kidneystone Time Seen by Provider: 10/16/22 03:13 Source: patient Mode of arrival: ambulatory Limitations: no limitations History of Present Illness HPI narrative: Patient comes to the emergency room complaining of abdominal pain in the left lower quadrant. Patient states that tonight she could not sleep. For about a week and half, patient has been having left lower quadrant pain. Three days ago she finished a course of antibiotics, Augmentin that she was prescribed by her PCP for possible diverticulitis flare. Patient states that since she finished the antibiotic, she has been feeling worse. Patient denies any diarrhea, patient complaining of a lot of nausea. Related Data Home Medications Medication Instructions Recorded Confirmed bupropion HCl 300 mg 24 hr tablet, 1 tab PO DAILY 03/31/21 03/31/21 extended release buspirone 10 mg tablet 3 tab PO BEDTIME 03/31/21 03/31/21 cholecalciferol (vitamin D3) 25 25 mcg PO DAILY 03/31/21 03/31/21 mcg (1,000 unit) capsule (Vitamin D3) dextroamphetamine-amphetamine ER 1 cap PO QAM 03/31/21 03/31/21 30 mg 24hr capsule,extend release (Adderall XR) folic acid 1 mg tablet 1 mg PO DAILY 03/31/21 03/31/21 hydroxychloroquine 200 mg tablet 1 tab PO BID 03/31/21 03/31/21 losartan 50 mg-hydrochlorothiazide 1 tab PO DAILY 03/31/21 03/31/21 12.5 mg tablet meloxicam 15 mg tablet 1 tab PO DAILY PRN Pain 03/31/21 03/31/21 sumatriptan succinate 100 mg tablet 1 tab PO DAILY PRN Headache 03/31/21 03/31/21 vitamin B complex 1 tab PO DAILY 03/31/21 03/31/21 Previous Rx's Medication Instructions Recorded amoxicillin 875 mg-potassium 1 tab PO BID #14 tabs 11/13/21 clavulanate 125 mg tablet morphine 15 mg immediate release 15 mg PO TID PRN pain #10 tabs 11/13/21 tablet ondansetron 4 mg disintegrating 4 mg PO Q8H PRN nausea and 11/13/21 tablet vomiting #20 tabs cyclobenzaprine 10 mg tablet 10 mg PO TID PRN muscle spasm #14 01/05/22 tabs hyoscyamine sulfate 0.125 mg tablet 0.125 mg PO QID #8 tabs 10/16/22 levofloxacin 500 mg tablet 500 mg PO DAILY #9 tabs 10/16/22 metronidazole 500 mg tablet 500 mg PO BID #19 tabs 10/16/22 ondansetron 4 mg disintegrating 4 mg PO Q6H PRN nausea and 10/16/22 tablet vomiting #14 tabs oxycodone 5 mg tablet 5 mg PO BID PRN pain #7 tabs 10/16/22 Allergies Allergy/AdvReac Type Severity Reaction Status Date / Time apple Allergy Severe ANAPHYLAXIS Verified 10/16/22 03:46 baker Allergy Severe ANAPHYLAXIS Verified 10/16/22 03:46 latex [LATEX] Allergy Severe ANAPHYLACTIC Verified 10/16/22 03:46 SHOCK peach [PEACH] Allergy Severe ANAPHYLAXIS Verified 10/16/22 03:46 pear [PEAR] Allergy Severe ANAPHYLAXIS Verified 10/16/22 03:46 Review of Systems Review of Systems Constitutional : No Weight loss, No Fever, No Chills, No Night Sweats, No Fatigue, No Malaise ENT/Mouth : No Hearing loss, No Ear Pain, No Nasal Congestion, No Sinus Pain, No Hoarseness, No sore throat, No Rhinorrhea, No Swallowing Difficulty Eyes: No Eye Pain, No Swelling, No Redness, No Foreign Body, No Discharge, No Vision Changes Cardiovascular : No Chest Pain, No SOB, No Dyspnea on Exertion, No Orthopnea, No Edema, No Palpitations Respiratory : No Cough, No Sputum, No Wheezing, No Smoke Exposure, No Dyspnea Gastrointestinal : Complaining of nausea and vomiting, no diarrhea, complaining of abdominal bloating and left lower quadrant pain Genitourinary : no irregular bleeding, No Dysuria, No Urinary Frequency, No Hematuria, No Urinary Incontinence, No Urgency, No Flank Pain, No Urinary Flow Changes, No Hesitancy Musculoskeletal : No joint pain, No Myalgias, No Joint Swelling Skin : No Skin Lesions, No rash Neuro : No Weakness, No Numbness, No Paresthesias, No Loss of Consciousness, No Dizziness, No Headache Psych : No Anxiety/Panic, No Depression, No SI/HI/AH/VH, No Social Issues, Heme/Lymph: No Bruising, No Bleeding,No Lymphadenopathy Endocrine : No Polyuria, No Polydipsia, No Temperature Intolerance [facility] Past Medical History Medical History (Updated 10/16/22 @ 06:32 by Jojo Pillai MD) ADD (attention deficit disorder) ADHD Depression Diverticulitis History of ischemic colitis HTN (hypertension) Hx of migraines Hx of pneumothorax Hx of renal calculi Lupus PONV (postoperative nausea and vomiting) Surgical History (Updated 10/16/22 @ 03:36 by Jojo Pillai MD) History of appendectomy History of colon resection History of cystoscopy History of esophagogastroduodenoscopy (EGD) History of lithotripsy Hx of colonoscopy Social History Social History Alcohol intake: never Patient Tobacco Use Status: Never used Tobacco Smoked in Last 30 Days: No Second Hand Smoke Exposure: No Use of substances other than those prescribed or required for medical reasons: No Substance Use Type: Marijuana Advance Directives: No Advance Directives Information Provided: Yes Patient : No Physical Exam ED Vital Signs: Vital Signs - 24 hr 10/16/22 02:54 10/16/22 04:32 10/16/22 05:35 Temperature 97.8 F 98.2 F Pulse Rate 110 H 84 80 Respiratory Rate 18 11 L Blood Pressure 106/70 119/67 122/67 Pulse Oximetry 96 97 Oxygen Delivery Method Room Air Room Air 10/16/22 05:37 10/16/22 05:38 Temperature Pulse Rate 80 80 Respiratory Rate Blood Pressure 123/67 129/74 Pulse Oximetry Oxygen Delivery Method BMI result Body Mass Index 21.6 Const Other: Appearance: Alert. Oriented X3. Patient looks uncomfortable Eyes: Pupils equal, round and reactive to light. ENT: Pharynx normal. Neck: Normal inspection. Neck supple. No lymph nodes noted. No crepitus CVS: Normal heart rate and rhythm. Pulses normal. Normal S1 and S2 Respiratory: No respiratory distress. Breath sounds normal. No Wheezing. No rales Abdomen: Soft, mildly distended, tender in left lower quadrant, mild guarding and rebound present Skin: Skin warm and dry. Normal skin color. Normal skin turgor. Extremities: No lower extremity edema. No Lacerations. No Rash Neuro: Oriented X 3. No motor deficit. No sensory deficit. Moving all extremities. No slurred speech. CN 2 through 12 grossly intact Psych: calm, cooperative, normal affect Course Course Course Narrative: -patient is getting IV fluids, morphine and Zofran. Labs and CT scan pending -patient likely has ongoing diverticulitis versus perforation Medical Decision Making Medical Decision Making [facility] Narrative: -variant the patient has CT scan of the abdomen/pelvis, no air-fluid levels, no perforation suspected -I discussed the CT findings with the patient, no diverticulitis. Although the CT scan showed somewhat thickened gallbladder wall, patient does not have any right upper quadrant pain, LFTs normal. -patient states that the abdominal is very similar to what she experienced before starting antibiotics. I discussed with the patient that we can give her a 2nd course of antibiotics, this time defer antibiotics. Patient may be discharged home, if she has no improvement or has worsening symptoms, she needs to return to the emergency room. Differential Diagnosis Differential Diagnoses: The differential diagnosis associated with the presentation includes (Diverticulitis, ovarian cyst, viral syndrome) Lab Data [facility] Lab Attestation statement: I reviewed the patient's lab results. 10/16/22 04:38 10/16/22 04:38 Labs: Lab Results 10/16/22 10/16/22 10/16/22 Range/Units 04:38 04:38 04:38 WBC 6.3 (4.8-10.8) X10*3/uL RBC 4.03 L (4.20-5.50) X10*6/uL Hgb 12.2 (12.0-16.0) g/dl Hct 34.9 L (37.0-47.0) % MCV 86.6 (80.0-98.0) fL MCH 30.3 (27.0-33.0) pg MCHC 35.0 (31.0-35.0) g/dl RDW 11.7 (11.0-16.0) % Plt Count 246 D (160-400) X10*3/uL MPV 9.5 (9.4-12.3) fL Immature Gran % (Auto) 0.2 (0.0-0.4) % Neut % (Auto) 67.6 (45-73) % Lymph % (Auto) 24.0 (20-40) % [place] % (Auto) 6.7 (2-11) % Eos % (Auto) 1.3 (0-4) % Baso % (Auto) 0.2 (0-2) % Lymph # (Auto) 1.5 (1.2-4.9) X10*3/uL [place] # (Auto) 0.4 (0.1-1.2) X10*3/uL Eos # (Auto) 0.1 (0.0-0.4) X10*3/uL Baso # (Auto) 0.0 (0.0-0.2) X10*3/uL Abs Immat Gran (auto) 0.01 (0.00-0.03) X10*3/uL Absolute Neuts (auto) 4.2 (2.0-8.3) x10*3/uL Absolute Nucleated RBC 0.000 (0.0-0.012) X10*3/uL Nucleated RBC % (auto) 0.0 (0.0-0.2) /100WBC Sodium 143 (135-145) mmol/L Potassium 3.6 (3.3-5.1) mmol/L Chloride 110 H (96-108) mmol/L Carbon Dioxide 27 (22-29) mmol/L Anion Gap 10 L (12-20) BUN 15 (9-16) mg/dL Creatinine 0.80 (0.5-1.4) mg/dL Estim Creat Clear Calc 73.1 Estimated GFR > 60 Random Glucose 122 H (60-115) mg/dL Calcium 8.5 D (8.4-10.2) mg/dL Total Bilirubin 0.4 (0.0-1.0) mg/dL Direct Bilirubin 0.1 (0.0-0.5) mg/dL AST 13 (5-31) U/L ALT 14 (0-31) U/L Alkaline Phosphatase 63 (39-117) U/L Total Protein 5.8 L (6.5-8.0) g/dL Albumin 3.6 (3.5-5.0) g/dL Lipase 27 (8-78) U/L Urine Color Yellow Urine Appearance Clear Urine pH 7.0 (5.0-9.0) Ur Specific [place] <= 1.005 (1.005-1.025) Urine Protein Negative (Neg-Trace) mg/dL Urine Glucose (UA) Negative (Negative) mg/dL Urine Ketones Negative (Negative) mg/dL Urine Blood Negative (Negative) Urine Nitrite Negative (Negative) Ur Leukocyte Esterase Negative (Negative) Radiology Impression Discussion of test interpretation with radiology: I have reviewed the radiologist's reading. Radiologist Impression: FINDINGS: LUNG BASES: The visualized lung bases are unremarkable.? LIVER, GALLBLADDER, AND BILIARY TREE: The liver is normal in size, shape, and attenuation. No focal hepatic lesion or biliary ductal dilatation is present. Gallbladder is physiologically distended. There is suggestion of adenomyomatosis of the gallbladder fundus. Gallbladder has a somewhat thick-walled appearance. No densely calcified gallstones are seen.? PANCREAS: Unremarkable.? SPLEEN: Unremarkable.? ADRENAL GLANDS: Unremarkable.? KIDNEYS AND URETERS: Prominent bilateral extrarenal pelvises. No obstructing calculus is seen. Several scattered small bilateral renal calculi noted. BLADDER: Unremarkable.? GASTROINTESTINAL TRACT: Suture line is present in the sigmoid colon. Scattered diverticulosis of the descending colon, without diverticulitis. No evidence of bowel obstruction. No free fluid or free air is seen. ABDOMINAL WALL: No significant hernia is appreciated. LYMPH NODES: Normal. VASCULAR: Unremarkable. PELVIC VISCERA: IUD is present in the uterus.? OSSEOUS STRUCTURES: Unremarkable.? CT/CT abdomen pelvis w IV con IMPRESSION: 1.? Colonic diverticulosis without diverticulitis. 2.? Somewhat thick-walled appearance of the gallbladder, which can be seen with cholecystitis in the proper clinical setting. If clinically warranted, this may be further assessed with ultrasound. 3.? Suggestion of adenomyomatosis of the gallbladder fundus. Medications Administered Discontinued Medications Generic Name Dose Route Start Last Admin Trade Name Freq PRN Reason Stop Dose Admin Sodium Chloride 1,000 mls @ 999 mls/hr 10/16/22 03:33 10/16/22 05:35 Ns IVCONT 10/16/22 04:33 Infused .Q1H1M ONE Infusion Iohexol 85 ml 10/16/22 05:19 10/16/22 05:20 Iohexol 350 Mg/Ml 100 Ml Infus..Btl IV 10/16/22 05:20 85 ml ONCE ONE Administration Ketorolac Tromethamine 30 mg 10/16/22 05:47 10/16/22 05:55 Ketorolac Tromethamine 30 Mg/Ml Vial IVPUSH 10/16/22 05:48 30 mg ONCE ONE Administration Morphine Sulfate 4 mg 10/16/22 03:33 10/16/22 04:00 Morphine Sulfate 4 Mg/Ml Cartridge IVPUSH 10/16/22 03:34 4 mg ONCE ONE Administration Protocol Ondansetron HCl 4 mg 10/16/22 03:33 10/16/22 04:00 Ondansetron Hcl 4 Mg/2 Ml Vial IVPUSH 10/16/22 03:34 4 mg ONCE ONE Administration Discharge Plan Discharge Clinical Impression: Abdominal pain Patient Disposition: Home, Self-Care Instructions: Abdominal Pain (ED) Additional Instructions: Please follow-up with your primary care physician tomorrow. If you have any worsening or new symptoms, please return to the emergency room or call 911 Prescriptions: New levofloxacin 500 mg tablet 500 mg PO DAILY Qty: 9 0RF metronidazole 500 mg tablet 500 mg PO BID Qty: 19 0RF oxycodone 5 mg tablet 5 mg PO BID PRN (Reason: pain) Qty: 7 0RF Rx Instructions: Partial Fill upon patient request. hyoscyamine sulfate 0.125 mg tablet 0.125 mg PO QID Qty: 8 0RF ondansetron 4 mg tablet,disintegrating 4 mg PO Q6H PRN (Reason: nausea and vomiting) Qty: 14 0RF No Action meloxicam 15 mg tablet 1 tab PO DAILY PRN (Reason: Pain) buspirone 10 mg tablet 3 tab PO BEDTIME vitamin B complex Tablet 1 tab PO DAILY folic acid 1 mg Tablet 1 mg PO DAILY losartan-hydrochlorothiazide 50-12.5 mg tablet 1 tab PO DAILY dextroamphetamine-amphetamine [Adderall XR] 30 mg capsule,extended release 24hr 1 cap PO QAM cholecalciferol (vitamin D3) [Vitamin D3] 25 mcg (1,000 unit) Capsule 25 mcg PO DAILY bupropion HCl 300 mg tablet extended release 24 hr 1 tab PO DAILY sumatriptan succinate 100 mg tablet 1 tab PO DAILY PRN (Reason: Headache) hydroxychloroquine 200 mg tablet 1 tab PO BID morphine 15 mg tablet 15 mg PO TID PRN (Reason: pain) Qty: 10 0RF Rx Instructions: partial fill okay; Partial Fill upon patient request. ondansetron 4 mg tablet,disintegrating 4 mg PO Q8H PRN (Reason: nausea and vomiting) Qty: 20 0RF amoxicillin-pot clavulanate 875-125 mg tablet 1 tab PO BID Qty: 14 0RF cyclobenzaprine 10 mg tablet 10 mg PO TID PRN (Reason: muscle spasm) Qty: 14 0RF
[2022-10-16] MEDS: 0.9 % Sodium Chloride 1,000 ML 999 ML IVCONT (03:51)
[2022-10-16] MEDS: ondansetron HCL 4 MG/2 ML VIAL IVPUSH (04:00)
[2022-10-16] MEDS: Morphine Sulfate 4 MG/ML CARTRIDGE IVPUSH (04:00)
[2022-10-16 04:32] VITALS: BP 119/67; PULSE 84; RESP 11; TEMP 36.8; O2SAT 97
--- OUTSIDE RECORDS SUMMARY | 2022-10-16 04:32 | XMS_ITS | Continuity of Care Document ---
Author Name Unknown Organization [facility] ter Address [address] [place] [id number] Care Team Providers Care [employer] Designer Name Role Phone Isabel Valentino MD Primary Care Physician [phone] Encounter [facility] Date(s): 03/11/20 - 06/23/[address] [address]- Attending Physician: Iraida Armenta Admitting Physician: Iraida Armenta Referring Physician: Iraida Armenta Allergies, Adverse Reactions, Alerts Substance Reaction Severity Status Latex Active Immunizations Given and Recorded Vaccine Date Status Refusal Reason FluLaval (oldterm) 1 04/03/09 Given 1Admin Note: influenza Medications Clomid 50 mg oral tablet 100, mg, 2, tablet, By Mouth, Daily, 10, tablet, 3, 3, 06/18/06 10:30:47, beginning on the 3rd day of menstrual of cycle and continue until day 7th of cycle., Print ELTON Number, [id number], ConstantIndicator Start Date: 06/18/06 Stop Date: 07/08/06 Status: Ordered clomiphene 50 mg oral tablet 100, mg, 2, tablet, By Mouth, Daily, 10, tablet, 1, 1, 06/15/06 11:02:10, 2 tabs. by mouth day 3-7 of cycle, Print ELTON Number, [id number], Constant Indicator Start Date: 06/15/06 Stop Date: 06/25/06 Status: Ordered Colace Capsule 100, mg, By Mouth, 2 times a day, Scheduled / PRN, 100, 0, 0, 03/20/07 8:57:47, as needed for constipation, Print ELTON Number, ADS OPPTHS, [id number] Start Date: 03/20/07 Status: Ordered Duet DHA ec vitamins 1, By Mouth, Daily, 1.23605j+, 90, 5, 5, 06/15/06 10:59:49, take 1 tab. and 1 softgel daily, IVPCare,Painter, Duet DHA ec vitamins Start Date: 06/15/06 Status: Ordered Follistim AQ beta 300 intl units subcutaneous solution as directed, Subcutaneous Injection, Daily, 3, 5, 5, 06/30/06 14:51:30, Print ELTON Number, [id number], Constant Indicator Start Date: 06/30/06 Status: Ordered Follistim AQ beta 300 intl units subcutaneous solution as directed, Subcutaneous Injection, Daily, 4, 5, 5, 06/15/06 11:03:58, Print ELTON Number, [id number], Constant Indicator Start Date: 06/15/06 Status: Ordered HCG 37744 u injectable powder for injection 1, Subcutaneous Injection, Once, 1, Doses, 1, 1, 06/15/06 11:02:57, Print ELTON Number, 42, Constant Indicator Start Date: 06/15/06 Status: Ordered Motrin Tablet 600, mg, By Mouth, Every 6 hours, 30, 0, 0, 03/20/07 8:57:32, Print ELTON Number, ADS OPPTHS, 54, Constant Indicator Start Date: 03/20/07 Status: Ordered Ovidrel 250 mcg subcutaneous injection 1 pre-filled syringe, Subcutaneous Injection, Once, 1, 3, 3, 06/30/06 14:52:55, Print ELTON Number, 42, Constant Indicator Start Date: 06/30/06 Status: Ordered Ovidrel 250 mcg subcutaneous injection asdirected, Subcutaneous Injection, Once, 1, 3, 3, 06/18/06 10:31:51, Print ELTON Number, 42, Constant Indicator Start Date: 06/18/06 Status: Ordered Ovidrel 250 mcg subcutaneous injection 1 pre-filled syringe, Subcutaneous Injection, Once, 1, 3, 3, 06/15/06 11:05:09, Print ELTON Number, 42, Constant Indicator Start Date: 06/15/06 Status: Ordered Percocet-5 Tablet 1, tablet, By Mouth, Every 4 hours, Scheduled / PRN, 30, tablet, 0, 0, 03/20/07 8:57:18, as needed for pain, Print ELTON Number, ADS OPPTHS, 51 Start Date: 03/20/07 Status: Ordered Multivitamins with Folic Acid 1 mg oral tablet 1, By Mouth, Daily, 100, 5, 5, 07/08/06 16:45:30, Print ELTON Number, [id number], Constant Indicator Start Date: 07/08/06 Status: Ordered Prometrium 200 mg oral capsule 200, mg, 1, capsule, Vaginally, 2 times a day, 60, 5, 5, 06/30/06 14:53:05, Print ELTON Number, [id number], Constant Indicator Start Date: 06/30/06 Status: Ordered Prometrium 200 mg oral capsule 200, mg, 1, capsule, Vaginally, 2 times a day, 60, 5, 5, 06/15/06 11:05:47, 1 tab. per vagina Bid,start 2 days after IUI, Print ETLON Number, [id number], Constant Indicator Start Date: 06/15/06 Status: Ordered Zofran 4 mg oral tablet 1 tablet = 4 mg, By Mouth, Every 8 hours, PRN as needed for nausea/vomiting, # 16 tablet, 0 Refills, Maintenance Start Date: 02/13/10 Stop Date: 02/15/10 Status: Ordered Problem List Condition Effective Dates Status Health Status Inform ant Unexplained infertility(Confirmed) Active Social History Social History Type Response Smoking Status Never entered on: 01/20/19 Sex
[2022-10-16 04:44] LABS: Basophils Percent Auto 0.2 % (0-2); Eosinophils Absolute Auto 0.1 X10*3/uL (0.0-0.4); Eosinophils Percent Auto 1.3 % (0-4); Hematocrit 34.9 % (37.0-47.0); Hemoglobin 12.2 g/dl (12.0-16.0); Imm Gran Abs Auto 0.01 X10*3/uL (0.00-0.03); Imm Gran Pct Auto 0.2 % (0.0-0.4); Lymphocytes Absolute Auto 1.5 X10*3/uL (1.2-4.9); MANUAL DIFF FLAG NO; Mean Corpuscular Hemoglobin 30.3 pg (27.0-33.0); Mean Corpuscular Volume 86.6 fL (80.0-98.0); Mean Platelet Volume 9.5 fL (9.4-12.3); Monocytes Absolute Auto 0.4 X10*3/uL (0.1-1.2); Monocytes Percent Auto 6.7 % (2-11); Neutrophils Absolute Auto 4.2 x10*3/uL (2.0-8.3); Neutrophils Percent Auto 67.6 % (45-73); Platelet Count 246 X10*3/uL (160-400); Red Blood Count 4.03 X10*6/uL (4.20-5.50); Red Cell Distribution Width 11.7 % (11.0-16.0); White Blood Count 6.3 X10*3/uL (4.8-10.8)
[2022-10-16 04:51] LABS: Appearance Urine Clear; Color Urine Yellow; Glucose Urine UA Negative (Negative); Leukocyte Esterase Urine Negative (Negative); Nitrite Urine Negative (Negative); Specific Gravity - Urine <= 1.005 (1.005-1.025); Urine Blood Negative (Negative); Urine Ketones Negative (Negative); Urine Protein Negative (Neg-Trace)
[2022-10-16 04:59] LABS: Alanine Aminotransferase 14 U/L (0-31); Albumin Level 3.6 g/dL (3.5-5.0); Alkaline Phosphatase 63 U/L (39-117); Anion Gap 10 (12-20); Aspartate Amino Transferase 13 U/L (5-31); Bilirubin Direct 0.1 mg/dL (0.0-0.5); Bilirubin Total 0.4 mg/dL (0.0-1.0); Blood Urea Nitrogen 15 mg/dL (9-16); Calcium 8.5 mg/dL (8.4-10.2); Carbon Dioxide 27 mmol/L (22-29); Chloride 110 mmol/L (96-108); Creatinine Clr Calc Pharmacy 73.1; Estimated Glomerular Filt Rate > 60; Glucose Random 122 mg/dL (60-115); Lipase 27 U/L (8-78); Potassium 3.6 mmol/L (3.3-5.1); Sodium 143 mmol/L (135-145); Total Protein 5.8 g/dL (6.5-8.0)
--- NOTE | 2022-10-16 05:02 | PC.NURSE ---
this rn assumed care of pt @ 0315 from waiting room. pt at bedside. dr sotelo to bedside, this rn placed iv in L ac pt tolerated well. pt medicated according to mar. bloodwork and urine sample obtained and sent down to lab. pt calm and cooperative. placed on dry pan charger
[2022-10-16] MEDS: iohexoL 350 MG/ML 100 ML INFUS..BTL 85 ML IV (05:20)
[2022-10-16 05:35] VITALS: BP 122/67; PULSE 80
[2022-10-16 05:37] VITALS: BP 123/67; PULSE 80
[2022-10-16 05:38] VITALS: BP 129/74; PULSE 80
--- NOTE | 2022-10-16 05:48 | PC.NURSE ---
pt reports to this rn dizziness upon changing positions while being brought down to CT scan. this rn discussed with dr sotelo. order placed for orthostatic vital signs. pt negative for orthostatic hypotension. dr sotelo made aware of results from orthostatic vital signs. pt reports to this rn pain increasing again at this time. this rn made dr sotelo aware. awaiting orders at this time
[2022-10-16] MEDS: Ketorolac Tromethamine 30 MG/ML VIAL IVPUSH (05:55)
[2022-10-16] MEDS: metroNIDAZOLE 500 MG TABLET PO (06:41)
[2022-10-16] MEDS: levoFLOXacin 500 MG TABLET PO (06:41)
[2022-10-16] MEDS: Morphine Sulfate 2 MG/ML CARTRIDGE IVPUSH (06:41)
[2022-10-16 06:45] VITALS: BP 134/65; PULSE 88; RESP 18; TEMP 36.6; O2SAT 96
--- NOTE | 2022-10-16 06:57 | PC.NURSE ---
pt medicated according to mar at time of discharge. iv removed. pt at bedside. pt calm and cooperative. vss. skin pwd. pt ambulatory at discharge. pt provided with discharge packet. pt verbalized understanding of discharge plan
== END 2022-10-16 06:59 | disposition home or self-care (01) ==
PROVIDERS: Emergency Provider Emergency Medicine
DX: R10.32 Left lower quadrant pain (principal); I10 Essential (primary) hypertension; F12.90 Cannabis use, unspecified, uncomplicated; Z79.899 Other long term (current) drug therapy
CPT/HCPCS: 36415; 74177; 80048; 80076; 81003; 83690; 85025; 96361; 96374; 96375; 96376; 99284; 99285; J1885; J2270; J2405; Q9967

== ENCOUNTER 2022-12-20 17:56 | Emergency (ER) | payer MEDICAID, SELFPAY ==
--- NOTE | ~2022-12-20 | US_ITS ---
EXAMINATION: US ABDOMEN LIMITED CLINICAL INFORMATION: Right upper quadrant pain with question of gallbladder disease. COMPARISON: None available. TECHNIQUE: Real-time imaging of the gallbladder. FINDINGS: GALLBLADDER: The gallbladder wall appears focally thickened near the neck of the gallbladder measuring about 3 to 5 mm. The gallbladder is physiologically distended without evidence of stones, sludge, polyps or pericholecystic fluid. Chris's sign is positive. COMMON BILE DUCT: Normal in caliber measuring 0.3 cm in diameter. US/US abdomen limited IMPRESSION: Focal thickening of the gallbladder wall near the neck of the gallbladder with positive Chris's sign. No stones are seen.
--- NOTE | ~2022-12-20 | CT_ITS ---
EXAMINATION: CT ABDOMEN AND PELVIS WITHOUT CONTRAST CLINICAL INFORMATION: Abdominal pain. Evaluate for a small bowel obstruction, perforated viscus, gallbladder disease. COMPARISON: Multiple priors, most recent CT abdomen/pelvis dated 10/16/2022. TECHNIQUE: Multidetector volumetric imaging was performed from the superior aspect of the liver through the pubic symphysis. Sagittal and coronal reformatted images were obtained on the technologist's workstation. This CT examination was performed using dose optimization techniques as appropriate, variously including the following: *Automated exposure control *Adjustment of mA and/or kV according to patient size (this includes techniques or standardized protocols for targeted exams where dose is matched to indication/reason for exam; i.e. extremities or head) *Use of iterative reconstruction technique DLP: 428 mGy-cm FINDINGS: LUNG BASES: The visualized lung bases are unremarkable. LIVER, GALLBLADDER, AND BILIARY TREE: The liver is normal in size, shape, and attenuation. No focal hepatic lesion or biliary ductal dilatation is present. No cholelithiasis or pericholecystic inflammatory change. Mild underdistention and wall thickening of the fundus is redemonstrated, similar when compared to the prior CT. No common bile duct dilatation. PANCREAS: Unremarkable. SPLEEN: Unremarkable. ADRENAL GLANDS: Unremarkable. KIDNEYS AND URETERS: The kidneys are normal in size, shape, and attenuation. Redemonstration of multiple bilateral renal stones, similar when compared to the prior examination. The largest stone is within the left lower pole measuring up to 0.5 cm. No ureteral stone or evidence of obstruction. No perinephric stranding. BLADDER: Partially distended and unremarkable. GASTROINTESTINAL TRACT: Redemonstration of an unremarkable rectosigmoid anastomosis. Scattered colonic diverticulosis without bowel wall thickening or inflammatory change to suggest acute diverticulitis. No small or large bowel obstruction. No bowel dilatation. Appendix not identified, however, no right lower quadrant inflammatory change to suggest acute appendicitis. PERITONEAL CAVITY: No intra-abdominal free air or free fluid. No abscess formation. ABDOMINAL WALL: No significant hernia is appreciated. LYMPH NODES: No significant lymphadenopathy. VASCULAR: Unremarkable. PELVIC VISCERA: IUD within the uterus. OSSEOUS STRUCTURES: No acute osseous abnormality. CT/CT abdomen pelvis wo IV con IMPRESSION: 1. Unremarkable rectosigmoid anastomosis. Diverticulosis without evidence of acute diverticulitis. No small or large bowel obstruction. Appendix not identified, however, no right lower quadrant inflammatory change to suggest acute appendicitis. 2. No new intra-abdominal mass, lymphadenopathy, or ascites. 3. Multiple bilateral renal stones, unchanged. No hydronephrosis or hydroureter. Fleischner guidelines were followed.
[2022-12-20 18:05] VITALS: BP 144/70; PULSE 80; O2SAT 99
[2022-12-20 18:26] VITALS: BP 140/72; PULSE 94; RESP 18; TEMP 36.6; O2SAT 98; BMI 25.3
--- NOTE | 2022-12-20 18:29 | PC.NURSE ---
Alert and oriented. arrived from home after having abdominal pain x 1 week that has progressively gotten worse. Rates pain at 9/10 and states worse after eating, ate cottage cheese x 1 hour ago. States pain is in center of abdomen and radiates to right side flank and back. Urine dark brown per patient but denies blood or pain with urination. Denies chest pain, sob, headache. hx of colon perforation and kidney stones and lupus
[2022-12-20 18:32] VITALS: BP 140/72; PULSE 94; RESP 18; TEMP 36.6; O2SAT 100
[2022-12-20 19:27] LABS: MANUAL DIFF FLAG NO
[2022-12-20 19:35] LABS: Basophils Percent Auto 0.3 % (0-2); Eosinophils Absolute Auto 0.1 X10*3/uL (0.0-0.4); Eosinophils Percent Auto 1.5 % (0-4); Hematocrit 38.4 % (37.0-47.0); Hemoglobin 13.4 g/dl (12.0-16.0); Imm Gran Abs Auto 0.01 X10*3/uL (0.00-0.03); Imm Gran Pct Auto 0.2 % (0.0-0.4); Lymphocytes Absolute Auto 2.6 X10*3/uL (1.2-4.9); Lymphocytes Percent Auto 39.2 % (20-40); Mean Corpuscular HGB Conc 34.9 g/dl (31.0-35.0); Mean Corpuscular Hemoglobin 30.4 pg (27.0-33.0); Mean Corpuscular Volume 87.1 fL (80.0-98.0); Mean Platelet Volume 9.6 fL (9.4-12.3); Monocytes Absolute Auto 0.4 X10*3/uL (0.1-1.2); Monocytes Percent Auto 6.6 % (2-11); Neutrophils Absolute Auto 3.5 x10*3/uL (2.0-8.3); Neutrophils Percent Auto 52.2 % (45-73); Platelet Count 292 X10*3/uL (160-400); Red Blood Count 4.41 X10*6/uL (4.20-5.50); Red Cell Distribution Width 11.5 % (11.0-16.0); White Blood Count 6.6 X10*3/uL (4.8-10.8)
--- NOTE | 2022-12-20 19:35 | ED_ITS ---
HPI - Abdominal Pain General Chief Complaint: Abdominal Pain Stated Complaint: ABD PAIN NAUSEA Time Seen by Provider: 12/20/22 19:20 Source: patient and EMS Mode of arrival: EMS Limitations: no limitations History of Present Illness HPI narrative: 52-year-old female came in for evaluation of abdominal pain. Patient been having upper abdominal pain for the past 7 days pain is localized to the upper abdomen and the right upper quadrant area, described as a dull aching pain, intermittent, moderate 7/10, pain is triggered and aggravated by any food or drink, no clear relieving factors, pain is associated with nausea and vomiting, no diarrhea, normal bowel movement, no dysuria, no frequency urination. Was 8 months ago sexually not active. Related Data Home Medications Medication Instructions Recorded Confirmed bupropion HCl 300 mg 24 hr tablet, 1 tab PO DAILY 03/31/21 03/31/21 extended release buspirone 10 mg tablet 3 tab PO BEDTIME 03/31/21 03/31/21 cholecalciferol (vitamin D3) 25 25 mcg PO DAILY 03/31/21 03/31/21 mcg (1,000 unit) capsule (Vitamin D3) dextroamphetamine-amphetamine ER 1 cap PO QAM 03/31/21 03/31/21 30 mg 24hr capsule,extend release (Adderall XR) folic acid 1 mg tablet 1 mg PO DAILY 03/31/21 03/31/21 hydroxychloroquine 200 mg tablet 1 tab PO BID 03/31/21 03/31/21 losartan 50 mg-hydrochlorothiazide 1 tab PO DAILY 03/31/21 03/31/21 12.5 mg tablet meloxicam 15 mg tablet 1 tab PO DAILY PRN Pain 03/31/21 03/31/21 sumatriptan succinate 100 mg tablet 1 tab PO DAILY PRN Headache 03/31/21 03/31/21 vitamin B complex 1 tab PO DAILY 03/31/21 03/31/21 Previous Rx's Medication Instructions Recorded amoxicillin 875 mg-potassium 1 tab PO BID #14 tabs 11/13/21 clavulanate 125 mg tablet morphine 15 mg immediate release 15 mg PO TID PRN pain #10 tabs 11/13/21 tablet ondansetron 4 mg disintegrating 4 mg PO Q8H PRN nausea and 11/13/21 tablet vomiting #20 tabs cyclobenzaprine 10 mg tablet 10 mg PO TID PRN muscle spasm #14 01/05/22 tabs hyoscyamine sulfate 0.125 mg tablet 0.125 mg PO QID #8 tabs 10/16/22 levofloxacin 500 mg tablet 500 mg PO DAILY #9 tabs 10/16/22 metronidazole 500 mg tablet 500 mg PO BID #19 tabs 10/16/22 ondansetron 4 mg disintegrating 4 mg PO Q6H PRN nausea and 10/16/22 tablet vomiting #14 tabs oxycodone 5 mg tablet 5 mg PO BID PRN pain #7 tabs 10/16/22 omeprazole 40 mg capsule,delayed 40 mg PO DAILY #30 caps 12/20/22 release Allergies Allergy/AdvReac Type Severity Reaction Status Date / Time apple Allergy Severe ANAPHYLAXIS Verified 10/16/22 03:46 baker Allergy Severe ANAPHYLAXIS Verified 10/16/22 03:46 latex [LATEX] Allergy Severe ANAPHYLACTIC Verified 10/16/22 03:46 SHOCK peach [PEACH] Allergy Severe ANAPHYLAXIS Verified 10/16/22 03:46 pear [PEAR] Allergy Severe ANAPHYLAXIS Verified 10/16/22 03:46 Review of Systems Review of Systems All other systems are reviewed and are negative Constitutional: Reports as per HPI and Reports no additional constitutional complaints Eyes: Reports as per HPI and Reports no additional eye complaints Reports system reviewed and no additional complaints, except as documented Cardiovascular: Reports as per HPI and Reports no additional cardiovascular complaints Respiratory: Reports as per HPI and Reports no additional respiratory complaints Gastrointestinal: Reports as per HPI and Reports no additional gastrointestinal complaints Genitourinary: Reports no additional female genitourinary complaints Musculoskeletal: Reports no additional musculoskeletal complaints Skin/Breast: Reports system reviewed and no additional complaints, except as docu Psychiatric: Reports no additional psychiatric complaints Endocrine: Reports no additional endocrine complaints Hematologic/Lymphatic: Reports no additional hematologic/lymphatic complaints Allergic/Immunologic: Reports no additional allergic/immunologic complaints Reports system reviewed and no additional complaints, except as documented and Reports Abnormal speech present [facility] Past Medical History Medical History ADD (attention deficit disorder) ADHD Depression Diverticulitis History of ischemic colitis HTN (hypertension) Hx of migraines Hx of pneumothorax Hx of renal calculi Lupus PONV (postoperative nausea and vomiting) Surgical History History of appendectomy History of colon resection History of cystoscopy History of esophagogastroduodenoscopy (EGD) History of lithotripsy Hx of colonoscopy Social History Social History Alcohol intake: former Patient Tobacco Use Status: Never used Tobacco Smoked in Last 30 Days: No Second Hand Smoke Exposure: No Use of substances other than those prescribed or required for medical reasons: No Substance Use Type: Marijuana Advance Directives: No Advance Directives Information Provided: Yes Physical Exam ED Vital Signs: Vital Signs - 24 hr 12/20/22 18:26 12/20/22 18:32 Temperature 98 F 98 F Pulse Rate 94 94 Respiratory Rate 18 18 Blood Pressure 140/72 H 140/72 H Pulse Oximetry 98 100 Oxygen Delivery Method Room Air Room Air BMI result Body Mass Index 25.3 Vital signs have been reviewed as appeared to be correct. Blood pressure normal. Heart rate normal. Respiration rate normal. Temperature normal. Oxygen saturation normal. Appearance: Alert. Oriented X3. No acute distress. Head: Normal external exam. Normocephalic. Atraumatic. No [place] signs noted. No raccoon eyes noted Eyes: PERRLA. EOMI. Conjunctiva and sclera normal. Eyelids normal. ENT: TM's Normal. Pharynx normal. Uvula midline. Moist mucous membranes. No trismus noted. No drooling noted. No muffled voice noted. Neck: Normal inspection. Neck supple. FROM. No adenopathy. Thyroid Normal. No meningeal signs. No neck mass noted. CVS: Normal heart rate and rhythm. Heart sound normal. No murmurs noted. Pulses normal throughout. Respiratory: No respiratory distress. Painless inspiration. Breath sounds normal. No wheezes/rales/rhonchi noted. Chest nontender. No accessory muscle usage noted or decreased air movement noted. Abdomen: Soft, epigastric tenderness, no rebound tenderness, no guarding. Bowel sounds normal in all 4 quadrants. No distention noted. No organomegaly noted. No visible injury noted. Back: No CVA tenderness. Full range of motion noted. Skin: Skin warm and dry. Normal skin color. Normal skin turgor. No rashes/lesions/lacerations noted. Extremities: No lower extremity edema. Extremities exhibit normal range of motion. Extremities nontender. Neuro: Oriented X 3. Cranial nerve exam: II-XII are grossly intact No motor deficit. No sensory deficit. Reflexes normal. Course Reevaluation(s) Reevaluation #1: Seven days of upper abdominal pain mostly after for eating any type of food, patient was given Maalox/Pepcid in the emergency department and tolerated p.o. intake well without pain or vomiting patient was instructed to follow up with PC P, nonspecific thickening of gallbladder wall on ultrasound with no gallbladder stones and normal LFTs with normal-looking gallbladder on the CT making gallbladder issue is unfavorable for patient's symptoms. Patient had unremarkable CT abdomen and pelvis. Patient already has an appointment with GI in 2 weeks. Time: 22:58 Medical Decision Making Differential Diagnosis Differential Diagnoses: The differential diagnosis associated with the presentation includes (Gastritis, pancreatitis, gallbladder disease, colitis, diverticulitis, appendicitis, kidney stone, electrolyte abnormality, severe anemia, UTI, .) Admission/Observation Consideration of admission/observation: Escalation of care including admission/observation considered Lab Data MDM Lab Attestation statement: I reviewed the patient's lab results. 12/20/22 19:24 12/20/22 19:24 Labs: Lab Results 12/20/22 12/20/22 12/20/22 Range/Units 19:24 19:24 19:24 WBC 6.6 (4.8-10.8) X10*3/uL RBC 4.41 (4.20-5.50) X10*6/uL Hgb 13.4 (12.0-16.0) g/dl Hct 38.4 (37.0-47.0) % MCV 87.1 (80.0-98.0) fL MCH 30.4 (27.0-33.0) pg MCHC 34.9 (31.0-35.0) g/dl RDW 11.5 (11.0-16.0) % Plt Count 292 (160-400) X10*3/uL MPV 9.6 (9.4-12.3) fL Immature Gran % (Auto) 0.2 (0.0-0.4) % Neut % (Auto) 52.2 (45-73) % Lymph % (Auto) 39.2 (20-40) % [place] % (Auto) 6.6 (2-11) % Eos % (Auto) 1.5 (0-4) % Baso % (Auto) 0.3 (0-2) % Lymph # (Auto) 2.6 (1.2-4.9) X10*3/uL [place] # (Auto) 0.4 (0.1-1.2) X10*3/uL Eos # (Auto) 0.1 (0.0-0.4) X10*3/uL Baso # (Auto) 0.0 (0.0-0.2) X10*3/uL Abs Immat Gran (auto) 0.01 (0.00-0.03) X10*3/uL Absolute Neuts (auto) 3.5 (2.0-8.3) x10*3/uL Absolute Nucleated RBC 0.000 (0.0-0.012) X10*3/uL Nucleated RBC % (auto) 0.0 (0.0-0.2) /100WBC PT 12.2 (10.0-13.1) SEC INR 1.1 (0.9-1.1) Sodium 141 (135-145) mmol/L Potassium 3.4 (3.3-5.1) mmol/L Chloride 105 (96-108) mmol/L Carbon Dioxide 27 (22-29) mmol/L Anion Gap 12 (12-20) BUN 17 H (9-16) mg/dL Creatinine 0.88 (0.5-1.4) mg/dL Estim Creat Clear Calc 64.3 Estimated GFR > 60 Random Glucose 81 (60-115) mg/dL Calcium 9.0 (8.4-10.2) mg/dL Magnesium 2.2 (1.6-2.6) mg/dL Total Bilirubin 0.6 (0.0-1.0) mg/dL Direct Bilirubin 0.2 (0.0-0.5) mg/dL AST 16 (5-31) U/L ALT 10 (0-31) U/L Alkaline Phosphatase 57 (39-117) U/L Total Protein 6.7 (6.5-8.0) g/dL Albumin 3.9 (3.5-5.0) g/dL Lipase 26 (8-78) U/L Urine Color Urine Appearance Urine pH (5.0-9.0) Ur Specific [place] (1.005-1.025) Urine Protein (Neg-Trace) mg/dL Urine Glucose (UA) (Negative) mg/dL Urine Ketones (Negative) mg/dL Urine Blood (Negative) Urine Nitrite (Negative) Ur Leukocyte Esterase (Negative) Urine RBC (0-2) /HPF Urine WBC (0-5) /HPF Ur Squamous Epith Cells (0-2) /HPF Urine Bacteria (None Seen) Hyaline Casts (0-2) /LPF Urine Test (NEGATIVE) 12/20/22 12/20/22 Range/Units 19:51 19:51 WBC (4.8-10.8) X10*3/uL RBC (4.20-5.50) X10*6/uL Hgb (12.0-16.0) g/dl Hct (37.0-47.0) % MCV (80.0-98.0) fL MCH (27.0-33.0) pg MCHC (31.0-35.0) g/dl RDW (11.0-16.0) % Plt Count (160-400) X10*3/uL MPV (9.4-12.3) fL Immature Gran % (Auto) (0.0-0.4) % Neut % (Auto) (45-73) % Lymph % (Auto) (20-40) % [place] % (Auto) (2-11) % Eos % (Auto) (0-4) % Baso % (Auto) (0-2) % Lymph # (Auto) (1.2-4.9) X10*3/uL [place] # (Auto) (0.1-1.2) X10*3/uL Eos # (Auto) (0.0-0.4) X10*3/uL Baso # (Auto) (0.0-0.2) X10*3/uL Abs Immat Gran (auto) (0.00-0.03) X10*3/uL Absolute Neuts (auto) (2.0-8.3) x10*3/uL Absolute Nucleated RBC (0.0-0.012) X10*3/uL Nucleated RBC % (auto) (0.0-0.2) /100WBC PT (10.0-13.1) SEC INR (0.9-1.1) Sodium (135-145) mmol/L Potassium (3.3-5.1) mmol/L Chloride (96-108) mmol/L Carbon Dioxide (22-29) mmol/L Anion Gap (12-20) BUN (9-16) mg/dL Creatinine (0.5-1.4) mg/dL Estim Creat Clear Calc Estimated GFR Random Glucose (60-115) mg/dL Calcium (8.4-10.2) mg/dL Magnesium (1.6-2.6) mg/dL Total Bilirubin (0.0-1.0) mg/dL Direct Bilirubin (0.0-0.5) mg/dL AST (5-31) U/L ALT (0-31) U/L Alkaline Phosphatase (39-117) U/L Total Protein (6.5-8.0) g/dL Albumin (3.5-5.0) g/dL Lipase (8-78) U/L Urine Color Yellow Urine Appearance Clear Urine pH 6.5 (5.0-9.0) Ur Specific [place] 1.010 (1.005-1.025) Urine Protein Negative (Neg-Trace) mg/dL Urine Glucose (UA) Negative (Negative) mg/dL Urine Ketones Negative (Negative) mg/dL Urine Blood Negative (Negative) Urine Nitrite Negative (Negative) Ur Leukocyte Esterase Trace H (Negative) Urine RBC 0-2 (0-2) /HPF Urine WBC 0-5 (0-5) /HPF Ur Squamous Epith Cells 0-2 (0-2) /HPF Urine Bacteria None Seen (None Seen) Hyaline Casts 0-2 (0-2) /LPF Urine Test NEGATIVE (NEGATIVE) Independent Interpretation I performed an independent interpretation of an: Ultrasound (Abdominal ultrasound:Focal thickening of the gallbladder wall near the neck of the gallbladder with positive Chris's sign. No stones are seen. ) and CT Scan (Abdomen and pelvis: Unremarkable rectosigmoid anastomosis. Diverticulosis without evidence of acute diverticulitis. No small or large bowel obstruction. Appendix not identified, however, no right lower quadrant inflammatory change to suggest acute appendicitis. 2. No new intra-abdominal mass, lym) Radiology Impression Discussion of test interpretation with radiology: I have reviewed the radiologist's reading. Medications Administered Discontinued Medications Generic Name Dose Route Start Last Admin Trade Name Freq PRN Reason Stop Dose Admin Al Hydroxide/Mg Hydroxide 30 ml 12/20/22 19:28 12/20/22 19:56 Magnesium Hydrox/Alum Hydrox 30 Ml Oral.Susp PO 12/20/22 19:29 30 ml ONCE ONE Administration Famotidine 20 mg 12/20/22 19:28 12/20/22 19:56 Famotidine/Pf 20 Mg/2 Ml Vial IVPUSH 12/20/22 19:29 20 mg ONCE ONE Administration Sodium Chloride 1,000 mls @ 999 mls/hr 12/20/22 19:28 12/20/22 20:57 Ns IV 12/20/22 20:28 Infused .Q1H1M ONE Infusion Ondansetron HCl 4 mg 12/20/22 19:28 12/20/22 19:56 Ondansetron Hcl 4 Mg/2 Ml Vial IVPUSH 12/20/22 19:29 4 mg ONCE ONE Administration Discharge Plan Discharge Clinical Impression: Gastritis Patient Disposition: Home, Self-Care Instructions: Gastritis (ED) Prescriptions: New omeprazole 40 mg capsule,delayed release(DR/EC) 40 mg PO DAILY Qty: 30 0RF No Action meloxicam 15 mg tablet 1 tab PO DAILY PRN (Reason: Pain) buspirone 10 mg tablet 3 tab PO BEDTIME vitamin B complex Tablet 1 tab PO DAILY folic acid 1 mg Tablet 1 mg PO DAILY losartan-hydrochlorothiazide 50-12.5 mg tablet 1 tab PO DAILY dextroamphetamine-amphetamine [Adderall XR] 30 mg capsule,extended release 24hr 1 cap PO QAM cholecalciferol (vitamin D3) [Vitamin D3] 25 mcg (1,000 unit) Capsule 25 mcg PO DAILY bupropion HCl 300 mg tablet extended release 24 hr 1 tab PO DAILY sumatriptan succinate 100 mg tablet 1 tab PO DAILY PRN (Reason: Headache) hydroxychloroquine 200 mg tablet 1 tab PO BID morphine 15 mg tablet 15 mg PO TID PRN (Reason: pain) Qty: 10 0RF Rx Instructions: partial fill okay; Partial Fill upon patient request. ondansetron 4 mg tablet,disintegrating 4 mg PO Q8H PRN (Reason: nausea and vomiting) Qty: 20 0RF amoxicillin-pot clavulanate 875-125 mg tablet 1 tab PO BID Qty: 14 0RF cyclobenzaprine 10 mg tablet 10 mg PO TID PRN (Reason: muscle spasm) Qty: 14 0RF levofloxacin 500 mg tablet 500 mg PO DAILY Qty: 9 0RF metronidazole 500 mg tablet 500 mg PO BID Qty: 19 0RF oxycodone 5 mg tablet 5 mg PO BID PRN (Reason: pain) Qty: 7 0RF Rx Instructions: Partial Fill upon patient request. hyoscyamine sulfate 0.125 mg tablet 0.125 mg PO QID Qty: 8 0RF ondansetron 4 mg tablet,disintegrating 4 mg PO Q6H PRN (Reason: nausea and vomiting) Qty: 14 0RF Referrals: Isabel Valentino MD [Primary Care Provider] - Sofia Kirby MD [Physician] -
[2022-12-20 19:40] LABS: INTERNATIONAL NORM RATIO 1.1 (0.9-1.1); Prothrombin Time 12.2 SEC (10.0-13.1)
[2022-12-20] MEDS: 0.9 % Sodium Chloride 1,000 ML 999 ML IV (19:56)
[2022-12-20] MEDS: Magnesium Hydrox/Alum Hydrox 30 ML ORAL.SUSP PO (19:56)
[2022-12-20] MEDS: Famotidine/PF 20 MG/2 ML VIAL IVPUSH (19:56)
[2022-12-20] MEDS: ondansetron HCL 4 MG/2 ML VIAL IVPUSH (19:56)
[2022-12-20 20:00] LABS: Alanine Aminotransferase 10 U/L (0-31); Albumin Level 3.9 g/dL (3.5-5.0); Alkaline Phosphatase 57 U/L (39-117); Anion Gap 12 (12-20); Aspartate Amino Transferase 16 U/L (5-31); Bilirubin Direct 0.2 mg/dL (0.0-0.5); Bilirubin Total 0.6 mg/dL (0.0-1.0); Blood Urea Nitrogen 17 mg/dL (9-16); Carbon Dioxide 27 mmol/L (22-29); Chloride 105 mmol/L (96-108); Creatinine Clr Calc Pharmacy 64.3; Estimated Glomerular Filt Rate > 60; Glucose Random 81 mg/dL (60-115); Lipase 26 U/L (8-78); Magnesium 2.2 mg/dL (1.6-2.6); Potassium 3.4 mmol/L (3.3-5.1); Sodium 141 mmol/L (135-145); Total Protein 6.7 g/dL (6.5-8.0)
[2022-12-20 20:01] LABS: Appearance Urine Clear; Color Urine Yellow; Glucose Urine UA Negative (Negative); Leukocyte Esterase Urine Trace (Negative); Nitrite Urine Negative (Negative); PH 6.5 (5.0-9.0); UMIC TRIGGER UACC YES; Urine Blood Negative (Negative); Urine Ketones Negative (Negative); Urine Protein Negative (Neg-Trace)
[2022-12-20 20:04] LABS: UPreg QC Valid YES; Urine Pregnancy NEGATIVE (NEGATIVE)
[2022-12-20 20:05] LABS: Bacteria Urine None Seen (None Seen); Hyaline Casts Urine 0-2 /LPF (0-2); RBC Urine 0-2 /HPF (0-2); Squamous Epithelial Cell Urine 0-2 /HPF (0-2); WBC Urine 0-5 /HPF (0-5)
--- NOTE | 2022-12-20 22:46 | PC.NURSE ---
PT states she feels okay after PO challenge of irina crackers and argentina rudi. Provider made aware
[2022-12-20 23:07] VITALS: BP 139/79; PULSE 81; RESP 17; TEMP 36.7; O2SAT 97
--- NOTE | 2022-12-20 23:08 | MHC.EDTECH ---
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
== END 2022-12-20 23:19 | disposition home or self-care (01) ==
PROVIDERS: Physician Assistant Medical; Emergency Provider Emergency Medicine; PCP Family Medicine
DX: K29.70 Gastritis, unspecified, without bleeding (principal); R10.2 Pelvic and perineal pain; Z79.899 Other long term (current) drug therapy
CPT/HCPCS: 36415; 74176; 76705; 80053; 81001; 81003; 81025; 82248; 83690; 83735; 85025; 85610; 96361; 96374; 96375; 99284; J2405